=== PATIENT | male | born 1955 | race Caucasian/White ===

== ENCOUNTER 2019-11-05 18:30 | Inpatient (IN) | payer OTHER ==
[~2019-11-05] VITALS: Ht 177.8 cm; Wt 98.0 kg
[2019-11-05] MEDS ORDERED: ACETAMINOPHEN 500 MG TAB PO ONE (19:15)
[2019-11-05] MEDS ORDERED: SODIUM CHLORIDE 0.9% 1,000 ML IV ONE (19:15)
[2019-11-05 21:38] LABS: INR 1.23 (0.9-1.15); Partial Thromboplastin Time 39.9 sec (23.64-32.05)
[2019-11-05 21:44] LABS: Albumin 2.4 g/dL (3.4-5.0); Anion Gap 11 (5-15); Blood Urea Nitrogen 48 mg/dL (7-18); Calcium 7.1 mg/dL (8.5-10.1); Carbon Dioxide 20 mmol/L (21-32); Chloride 96 mmol/L (98-107); Glucose 152 mg/dL (74-106); Lactic Acid w/Reflex 2.6 mmol/L (0.4-2.0); Magnesium 1.8 mg/dL (1.6-2.6); Potassium 3.8 mmol/L (3.5-5.1); Sodium 127 mmol/L (136-145)
[2019-11-05 21:46] LABS: Alanine Aminotransferase 42 U/L (16-61); Aspartate Aminotransferase 107 U/L (15-37); BUN/Creatinine Ratio 33.8; GFR African American 65 mL/min; GFR Non-African American 53 mL/min
[2019-11-05 21:48] LABS: Urine Amorphous Crystal FEW /hpf (None Seen); Urine Bacteria NONE SEEN /hpf (None Seen); Urine Blood 3+ /uL (Negative); Urine Hyaline Cast FEW /lpf (0 - 2); Urine Mucus FEW (None Seen); Urine Specific Gravity 1.014 (1.001-1.035); Urine WBC 8 /hpf (0 - 3)
[2019-11-05 21:51] LABS: Alkaline Phosphatase 62 U/L (45-117); Bilirubin, Total 1.9 mg/dL (0.2-1.0)
[2019-11-05] MEDS ORDERED: PIPERACILLIN-TAZOB 3.375GM 100 ML IV ONE (22:15)
[2019-11-05] MEDS ORDERED: VANCOMYCIN 1GM/250ML 250 ML IV ONE (22:15)
[2019-11-05 22:30] LABS: Blood Alcohol < 3.0 mg/dL (0-5); Hematocrit 23.1 % (41.0-53.0); Hemoglobin 8.4 g/dL (13.5-17.5); Mean Corpuscular Hemoglobin 31.7 pg (28.0-32.0); Mean Corpuscular Hgb Conc. 36.2 g/dL (32.0-36.0); Mean Corpuscular Volume 87.6 fL (80.0-100.0); Platelet Count (auto) 46 10^3/uL (140-450); Red Blood Cells 2.64 10^6/uL (4.5-5.90); Red Cell Distribution Width 17.3 % (11.8-14.3); White Blood Cell 6.7 10^3/uL (4.4-10.8)
[2019-11-05 22:34] LABS: Basophils % (manual) 0 (0.0-2.0); Blast Cells 0; Eosinophils % (manual) 0 (0-7); Metamyelocytes % 0; Myelocytes % 0; Promyelocytes % 0; Reactive Lymphocytes 0
[2019-11-05 23:29] LABS: Band Neutrophils % (manual) 6; Lymphocytes % (manual) 2 (10.0-50.0); Monocytes % (manual) 12 (0-12)
[2019-11-06] VITALS (25 sets, daily range): BP systolic 96–108; BP diastolic 49–76
[2019-11-06] MEDS ORDERED: VANCOMYCIN PER PHARMACY 0 MG IV SCH (00:45)
[2019-11-06] MEDS ORDERED: ACETAMINOPHEN 325 MG TAB PO PRN (00:45)
[2019-11-06] MEDS ORDERED: NITROGLYCERIN 0.4 MG SL TAB SL PRN (00:45)
[2019-11-06] MEDS ORDERED: CEFTRIAXONE SODIUM 2 GM in D5W 5% 50 ML IV ONE (00:45)
[2019-11-06] MEDS ORDERED: SODIUM CHLORIDE 0.9% 500 ML IV ONE (00:45)
[2019-11-06] MEDS ORDERED: ENOXAPARIN SOD 100 MG/1 ML SYRINGE SC ONE (00:45)
[2019-11-06] MEDS ORDERED: MORPHINE SULF INJ 2 MG/ML SYRINGE 1ML IV PRN (00:45)
[2019-11-06] MEDS ORDERED: DEXTROSE (50%) 50ML SYRG IV PRN (00:45)
[2019-11-06] MEDS: SODIUM CHLORIDE 0.9% 1,000 ML IV SCH ×2 (00:45→12:36)
[2019-11-06] MEDS ORDERED: ONDANSETRON HCL 4 MG/2 ML VIAL IV PRN (00:45)
[2019-11-06] MEDS ORDERED: cefTRIAXone 1GM/50ML D5W 100 ML IV ONE (01:04)
[2019-11-06 01:35] LABS: CRP High Sensitivity 14.3 mg/dL (< 0.3)
[2019-11-06] MEDS ORDERED: VANCOMYCIN 1GM/250ML 250 ML IV ONE (02:00)
[2019-11-06] MEDS ORDERED: ACETAMINOPHEN 650 MG RECT SUPP PR ONE ×2 (06:45→15:09)
[2019-11-06] MEDS ORDERED: ALBUMIN 5% 250 ML IV ONE (07:15)
[2019-11-06] MEDS: ACCU-CHEK COMFORT CURVE STRIP VI SCH ×3 (07:40→21:52)
[2019-11-06] MEDS: InsuLIN REG 1unit/0.01ml Soln (100units/ml) SC SCH ×3 (08:30→21:52)
[2019-11-06] MEDS ORDERED: cefTRIAXone 1GM/50ML D5W 50 ML IV SCH (09:00)
[2019-11-06] MEDS: PHENYLEPHRINE IV 250 ML IV SCH ×2 (09:15→17:35)
[2019-11-06] MEDS ORDERED: ASPirin 81 mg TAB PO SCH (10:00)
[2019-11-06] MEDS ORDERED: FAMOTIDINE 20 MG TAB PO SCH (10:00)
[2019-11-06] MEDS ORDERED: IOHEXOL 350 MG/ML 100ML IJ ONE (11:08)
--- NOTE | 2019-11-06 15:10 | NUR ---
Pt being admitted to ICU GERARDOANNELIESE PEREZ admitted to ICU via gurney on laboratory monitor, and portable 02. Patient transferred to bed, connected to ICU monitoring and oxygen, and weighed by bedscale. Patient oriented to Steph Blount, primary RN, unit, room, bed, and unit policies regarding patient care and visiting hours, Patient is altered at this time. All questions and concerns addressed with sister Kathleen. Call vazquez in reach, bed alarm activated for patient safety.
[2019-11-06] MEDS: VANCOMYCIN 1GM/250ML 250 ML IV SCH (15:21)
[2019-11-06] MEDS: ACETAMINOPHEN 650 MG RECT SUPP PR PRN (15:30)
[2019-11-06] MEDS ORDERED: MEROPENEM 1GM IVPB 100 ML IV ONE (16:00)
--- NOTE | 2019-11-06 16:30 | NUR ---
TEMP PATIENT TEMP REMAINS AT 101.3 RECTALLY. APPLIED COOLING BLANKET. WILL CONTINUE TO MONITOR.
[2019-11-06] MEDS ORDERED: GLIP5TAB12 PO (18:40)
[2019-11-06] MEDS ORDERED: LISI2.5T47 PO (18:40)
--- NOTE | 2019-11-06 19:00 | NUR ---
PATIENT IS MORE ALERT AND ASKING FOR WATER. STILL UNABLE TO TELL ME HIS NAME, DATE OF , OR WHERE HE IS. PATIENT ABLE TO SWALLOW WATER WITHOUT ANY NOTED ASPIRATION.
--- NOTE | 2019-11-06 20:00 | NUR ---
Patient was noted to remove his blood pressure cuff.
--- NOTE | 2019-11-06 20:30 | NUR ---
Dr. Kirk at patient bedside. No new orders obtained from at this time.
[2019-11-06] MEDS: ATORVASTATIN 20 MG TAB PO SCH (21:36)
[2019-11-06] MEDS: MEROPENEM 1GM IVPB 100 ML IV SCH (21:51)
--- NOTE | 2019-11-06 21:57 | NUR ---
IV pulled out: Patient accidentally pulled out his IV to his right FA. Catheter to IV fully intact. Patient in no discomfort or distress.
--- NOTE | 2019-11-06 22:32 | NUR ---
Patient was noted to be pulling on his EKG lines and lebron catheter. RN placed mittens on patient to prevent pulling of lines. Patient resting comfortably in bed with no s/s of discomfort or distress. Patient tolerating mittens well at this time.
[2019-11-06 22:44] LABS: Amphetamine Screen, Urine NEGATIVE (NEGATIVE); Barbiturate Scree,Urine NEGATIVE (NEGATIVE); Benzodiazephine Screen, Urine NEGATIVE (NEGATIVE)
[2019-11-06 22:57] LABS: Cannabinoid Screen, Urine NEGATIVE (NEGATIVE); Cocaine Screen, Urine NEGATIVE (NEGATIVE); Opiate Scree,Urine NEGATIVE (NEGATIVE); Phencyclidine Screen, Urine NEGATIVE (NEGATIVE)
[2019-11-06 22:59] LABS: Alcohol, Urine < 3.0 mg/dL (0-10)
[2019-11-07] MEDS: SODIUM CHLORIDE 0.9% 1,000 ML IV SCH ×3 (00:17→23:59)
--- NOTE | 2019-11-07 01:11 | NUR ---
Report given to Susan GILL. Patient being downgraded to Tele and going to room 283A. Addendum: 11/07/19 at 0143 by ANITA FRIED RN RN Not room 283A, patient went into room 282A.
[2019-11-07 01:30] VITALS: BP 108/57
--- NOTE | 2019-11-07 01:30 | NUR ---
Transfer: Patient was transferred to room 282A via protocol. Patient in no s/s of discomfort or distress.
--- NOTE | 2019-11-07 01:35 | NUR ---
Assumed care of patient. report received. patient awake and alert, oriented x 3, reoriented to situation, patient follows directions. Patient on 2L vai NC with even and unlabored respirations, no s/s of distress or SOB. Jones intact and draining to gravity. Left forearm 18g intact and patent, started IVF per orders. SCD's on to bilateral LE with machine on. Bed in lowest locked position with side rails up x 2 and call light within reach. sitter at bedside. will continue care.
[2019-11-07] MEDS: VANCOMYCIN 1GM/250ML 250 ML IV SCH ×2 (02:16→14:38)
--- NOTE | 2019-11-07 02:30 | NUR ---
Bowel Movement patient noted to have loose BM, incontinent. Patient was cleansed, barrier cream and optifoam applied to sacrum, full linen change.
[2019-11-07 05:00] VITALS: BP 97/54
[2019-11-07 06:17] LABS: Hematocrit 20.7 % (41.0-53.0); Hemoglobin 7.4 g/dL (13.5-17.5); Mean Corpuscular Hemoglobin 31.6 pg (28.0-32.0); Mean Corpuscular Hgb Conc. 35.7 g/dL (32.0-36.0); Mean Corpuscular Volume 88.5 fL (80.0-100.0); Platelet Count (auto) 35 10^3/uL (140-450); Red Blood Cells 2.33 10^6/uL (4.5-5.90)
[2019-11-07 06:25] LABS: Potassium 3.4 mmol/L (3.5-5.1)
[2019-11-07] MEDS: ACCU-CHEK COMFORT CURVE STRIP VI SCH ×4 (06:38→23:58)
[2019-11-07] MEDS: ACETAMINOPHEN 650 MG RECT SUPP PR PRN (06:39)
[2019-11-07 06:41] LABS: Albumin 2.1 g/dL (3.4-5.0); BUN/Creatinine Ratio 45.9; Calcium 6.9 mg/dL (8.5-10.1); Magnesium 2.3 mg/dL (1.6-2.6); Total Protein 5.4 g/dL (6.4-8.2)
[2019-11-07] MEDS: InsuLIN REG 1unit/0.01ml Soln (100units/ml) SC SCH ×4 (06:58→23:58)
--- NOTE | 2019-11-07 07:12 | NUR ---
Closing note patient resting in bed with even and unlabored respirations, oxygen on at 2L via NC. no s/s of distress or SOB. patient was able to tolerated water well. aspirations precautions in place. SCD's on to bilateral LE with machine on. Bed in lowest locked position with side rails up x 2 and call light within reach. sitter at bedside.
--- NOTE | 2019-11-07 07:12 | NUR ---
OPENING SHIFT NOTE ASSUMED CARE OF PATIENT FROM INDUSTRIAL ENGINEERING RN PRASAD. PATIENT IS AWAKE, ALERT, AND ORIENTED X4. PATIENT HAS NO S/S OF DISTRESS/SOB OR PAIN. INSTRUCTED PATIENT ON POC, PATIENT VERBALIZED UNDERSTANDING. BED IS IN LOWEST POSITION WITH SIDE RAILS RAISED X2, BED WHEELS LOCKED, WRIGHT IS HANGING BELOW BLADDER AND IS DRAINING YELLOW URINE, SITTER AT BEDSIDE, AND CALL LIGHT IS WITHIN REACH. WILL CONTINUE TO MONITOR.
[2019-11-07 07:40] LABS: Basophils % (manual) 0 (0.0-2.0); Blast Cells 0; Eosinophils % (manual) 0 (0-7); Myelocytes % 0; Promyelocytes % 0; Reactive Lymphocytes 0
[2019-11-07] MEDS ORDERED: POTASSIUM CHLORIDE 20 MEQ, LIDOCAINE 1% (LOCAL ANESTH.) 2 ML in SODIUM CHL 0.9% 100 ML IV ONE (08:15)
--- NOTE | 2019-11-07 08:18 | NUR ---
CALLED PHARMACY FOR POTASSIUM. PER PHARMACIST THEY WILL SEND IT UP ONCE IT HAS BEEN MADE.
[2019-11-07] MEDS: MEROPENEM 1GM IVPB 100 ML IV SCH (09:47)
[2019-11-07] MEDS: PANTOPRAZOLE 40 MG/10 ML VIAL INJ IV SCH (09:47)
[2019-11-07] MEDS ORDERED: ASPirin 81 mg TAB PO SCH (10:00)
--- NOTE | 2019-11-07 12:00 | NUR ---
WOUND CARE NOTE: IN TO SEE PATIENT AT THIS TIME PER WOUND CARE CONSULT REQUEST. PATIENT WAS NOTED TO HAVE WOUNDS UPON ADMIT. WOUND PHOTOS TAKEN AT THAT TIME FOR REFERENCE BY BEDSIDE NURSE. PATIENT ADMITTED TO [facility] WITH DIAGNOSIS OF SEPSIS. CURRENT JAYDEN SCORE IS 12. PATIENT HAS SITTER AT BEDSIDE, IN ISOLATION ROOM WITH AIRBORNE PRECAUTIONS. PATIENT IS REFUSING TO ALLOW EXAMINATION OF WOUNDS AT THIS TIME, STATING THAT HE HAS " MORE THAN ENOUGH DONE FOR TODAY". PER PHOTOGRAPHS, PATIENT IS NOTED TO HAVE INTACT SKIN, WITH A SMALL LINEAR DTI TO THE INTRAGLUTEAL FOLD SACRUM, A SCRATCH TO HIS FOREHEAD, AND A SMALL ECCHYMOTIC AREA TO THE RIGHT LATERAL FOOT. HE IS WEARING AN OPTIFOAM GENTLE SACRAL DRESSING TO COVER AND PROTECT. ORDERED SPECIALTY AIR MATTRESS. PATIENT TO BE PLACED, PENDING DELIVERY BY [facility]. UPDATED SKIN/WOUND CARE PLAN. RECOMMEND: FREQUENT TURN SCHEDULE Q 2 HOURS, PRN CONDITION PERMITS WITH PRESSURE REDISTRIBUTION USING PILLOWS/WEDGES, BID/PRN APPLICATION WITH MOISTURE BARRIER FILM, OPTIFOAM GENTLE SACRAL DRESSING, SPECIALTY AIR MATTRESS, DIETARY CONSULT FOR WOUNDS, LOW JAYDEN, CONTINUED MONITORING BY WOUND CARE TEAM. Addendum: 11/07/19 at 1556 by Yissel Javier RN Amended: Links added.
[2019-11-07 12:07] LABS: Band Neutrophils % (manual) 12; Lymphocytes % (manual) 10 (10.0-50.0); Metamyelocytes % 1; Monocytes % (manual) 21 (0-12)
[2019-11-07 12:26] VITALS: BP 103/60
[2019-11-07] MEDS ORDERED: THIAMINE HCL 100 MG TAB PO ONE (14:15)
[2019-11-07] MEDS ORDERED: FOLIC ACID 1 MG TAB PO ONE (14:15)
[2019-11-07] MEDS ORDERED: MULTIPLE VITAMINS W/ MINERALS TAB PO ONE (14:15)
--- NOTE | 2019-11-07 14:30 | NUR ---
VANCOMYCIN STOPPED AT 125 ML.
--- NOTE | 2019-11-07 14:50 | NUR ---
INFORMED MD ESTRADA PATIENT STATES HE IS HAVING PAIN. MD ORDERED NORCO TO BE GIVEN. WILL FOLLOW THROUGH WITH ORDERS.
--- NOTE | 2019-11-07 16:43 | NUR ---
SPOKE WITH PHARMACIST AND INFORMED THEM THAT VANCOMYCIN WAS GIVEN BECAUSE PROTOCOL COMMENT FOR TROUGH DRAW WAS DATED INCORRECTLY, INFORMED PHARMACIST VANCO TROUGH IS 21. PHARMACIST IS AWARE AND ADJUSTED NEW VANCOMYCIN ORDER.
[2019-11-07 17:08] VITALS: BP 100/59
[2019-11-07] MEDS: HYDROcodone-ACET 5/325MG TAB PO PRN (17:22)
--- NOTE | 2019-11-07 17:52 | NUR ---
MD TABOR AT BEDSIDE UPDATED MD ON PATIENT'S STATUS, MD IS AWARE AND PER MD PATIENT IS NOT A CANDIDATE FOR SURGERY AND WILL SEE PATIENT ONCE MENINGITIS ONCE RULED OUT.
--- NOTE | 2019-11-07 19:27 | NUR ---
CLOSING SHIFT NOTE ENDORSED CARE TO TARIFF COMPILER BRIDGET VARGAS. PATIENT HAS NO S/S OF DISTRESS/SOB OR PAIN AT THIS TIME.
[2019-11-07 22:00] VITALS: BP 113/64
[2019-11-07] MEDS: ATORVASTATIN 20 MG TAB PO SCH (23:59)
[2019-11-08] VITALS (7 sets, daily range): BP systolic 93–115; BP diastolic 54–69
[2019-11-08] MEDS: HYDROcodone-ACET 5/325MG TAB PO PRN ×2 (02:10→10:17)
[2019-11-08] MEDS: ACCU-CHEK COMFORT CURVE STRIP VI SCH ×4 (06:49→22:00)
[2019-11-08] MEDS: InsuLIN REG 1unit/0.01ml Soln (100units/ml) SC SCH ×4 (06:49→22:00)
[2019-11-08 06:51] LABS: Basophils # (auto) 0 10 ^3/uL (0-0.2); Basophils % (auto) 0.2 % (0.0-2.0); Eosinophils # (auto) 0 10 ^3/uL (0-0.8); Eosinophils % (auto) 1.2 % (0.0-7.0); Hemoglobin 7.1 g/dL (13.5-17.5); Lymphocytes # (auto) 0.5 10 ^3/uL (0.4-5.4); Monocytes # (auto) 0.6 10 ^3/uL (0-1.3); Red Blood Cells 2.27 10^6/uL (4.5-5.90); White Blood Cell 3.7 10^3/uL (4.4-10.8)
[2019-11-08 06:54] LABS: Hematocrit 20.2 % (41.0-53.0); Lymphocytes % (auto) 12.8 % (10.0-50.0); Mean Corpuscular Hemoglobin 31.5 pg (28.0-32.0); Mean Corpuscular Hgb Conc. 35.4 g/dL (32.0-36.0); Mean Corpuscular Volume 88.9 fL (80.0-100.0); Monocytes % (auto) 17.4 % (0.0-12.0); Neutrophils # (auto) 2.5 10 ^3/uL (1.6-8.6); Neutrophils % (auto) 68.4 % (37.0-80.0); Nucleated Red Blood Cells % 0.2 %; Platelet Count (auto) 38 10^3/uL (140-450); Red Cell Distribution Width 17.1 % (11.8-14.3)
[2019-11-08 06:55] LABS: INR 1.2 (0.9-1.15)
[2019-11-08 07:09] LABS: Potassium 3.4 mmol/L (3.5-5.1)
[2019-11-08 07:14] LABS: Albumin 1.8 g/dL (3.4-5.0); BUN/Creatinine Ratio 56.2; Calcium 6.9 mg/dL (8.5-10.1)
[2019-11-08 07:19] LABS: Bilirubin, Total 0.9 mg/dL (0.2-1.0); Total Protein 5.1 g/dL (6.4-8.2)
[2019-11-08] MEDS ORDERED: VANCOMYCIN 1GM/250ML 250 ML IV SCH (08:00)
[2019-11-08] MEDS: FOLIC ACID 1 MG TAB PO SCH (10:15)
[2019-11-08] MEDS: PANTOPRAZOLE 40 MG/10 ML VIAL INJ IV SCH (10:15)
[2019-11-08] MEDS: THIAMINE HCL 100 MG TAB PO SCH (10:16)
[2019-11-08] MEDS: MULTIPLE VITAMINS W/ MINERALS TAB PO SCH (10:16)
[2019-11-08] MEDS: MEROPENEM 1GM IVPB 100 ML IV SCH ×3 (10:16→17:53)
[2019-11-08] MEDS: SODIUM CHLORIDE 0.9% 1,000 ML IV SCH ×2 (12:35→23:21)
[2019-11-08] MEDS: VANCOMYCIN 1GM/250ML 250 ML IV SCH ×2 (13:16→23:58)
--- NOTE | 2019-11-08 15:07 | NUR ---
Consult Consider adding Glucerna TID if pt po intake continues to be poor Est energy needs 4410-2655 (25-30 kcal/kg BW 73.3kg) Est protein needs 73-88g (1-1.2g/kg BW 73.3kg r/t wounds, low alb) will reassess prn Addendum: 11/08/19 at [address] Amended: Links added.
[2019-11-08 19:04] LABS: % Iron Saturation 3.9 % (20-55)
--- NOTE | 2019-11-08 20:00 | NUR ---
Opening Shift Note Assumed care of patient, awake and alert. No S/S of distress/SOB or pain. Instructed on POC and to call for assist PRN, will continue to monitor for changes Q1hr and PRN. 1:1 sitter near patient door.
[2019-11-08] MEDS: LACTULOSE 20Gm/30ML SOLN PO SCH (23:18)
[2019-11-08] MEDS: ATORVASTATIN 20 MG TAB PO SCH (23:18)
[2019-11-09] MEDS: HYDROcodone-ACET 5/325MG TAB PO PRN ×3 (00:06→15:00)
[2019-11-09] MEDS: MEROPENEM 1GM IVPB 100 ML IV SCH ×3 (02:24→18:28)
--- NOTE | 2019-11-09 04:30 | NUR ---
Preparations were made to transport patient down to Radiology for Lumbar and Thoraic CT. Patient stated he had just fallen asleep and declined CT at this time..
--- NOTE | 2019-11-09 07:00 | NUR ---
Patient resting comfortably no distress noted. Sitter remains at room door.
[2019-11-09 07:11] LABS: Basophils # (auto) 0 10 ^3/uL (0-0.2); Basophils % (auto) 0.1 % (0.0-2.0); Eosinophils # (auto) 0.1 10 ^3/uL (0-0.8); Hemoglobin 7.4 g/dL (13.5-17.5); Lymphocytes # (auto) 0.6 10 ^3/uL (0.4-5.4); Mean Corpuscular Hgb Conc. 34.4 g/dL (32.0-36.0); Monocytes # (auto) 0.6 10 ^3/uL (0-1.3); Potassium 3.4 mmol/L (3.5-5.1); Red Blood Cells 2.37 10^6/uL (4.5-5.90)
[2019-11-09 07:13] LABS: Eosinophils % (auto) 1.8 % (0.0-7.0); Hematocrit 21.5 % (41.0-53.0); Lymphocytes % (auto) 10.3 % (10.0-50.0); Mean Corpuscular Hemoglobin 31.2 pg (28.0-32.0); Mean Corpuscular Volume 90.6 fL (80.0-100.0); Monocytes % (auto) 10.3 % (0.0-12.0); Neutrophils # (auto) 4.7 10 ^3/uL (1.6-8.6); Neutrophils % (auto) 77.5 % (37.0-80.0); Platelet Count (auto) 51 10^3/uL (140-450); Red Cell Distribution Width 16.6 % (11.8-14.3)
[2019-11-09] MEDS: InsuLIN REG 1unit/0.01ml Soln (100units/ml) SC SCH ×4 (07:15→21:57)
[2019-11-09] MEDS: ACCU-CHEK COMFORT CURVE STRIP VI SCH ×4 (07:16→21:57)
[2019-11-09 07:19] LABS: BUN/Creatinine Ratio 59.6; Calcium 7.1 mg/dL (8.5-10.1)
--- NOTE | 2019-11-09 08:02 | NUR ---
OPENING SHIFT NOTE Assumed care of patient. Patient is awake and alert. No S/S of distress/SOB. Instructed on POC and to call for assist PRN. Bed is in low and locked position. Call light within reach. Will continue to monitor for changes Q1hr and PRN. Sitter near patient door.
[2019-11-09 09:00] VITALS: BP 122/62
[2019-11-09 11:34] LABS: INR 1.23 (0.9-1.15); Partial Thromboplastin Time 32.8 sec (23.64-32.05)
[2019-11-09 11:43] LABS: Amylase 48 U/L (25-115); Lipase 352 U/L (73-393)
[2019-11-09] MEDS: LACTULOSE 20Gm/30ML SOLN PO SCH ×2 (12:00→21:56)
[2019-11-09] MEDS: MULTIPLE VITAMINS W/ MINERALS TAB PO SCH (12:00)
[2019-11-09] MEDS: FOLIC ACID 1 MG TAB PO SCH (12:00)
[2019-11-09] MEDS: THIAMINE HCL 100 MG TAB PO SCH (12:00)
[2019-11-09] MEDS: PANTOPRAZOLE 40 MG/10 ML VIAL INJ IV SCH (12:00)
[2019-11-09] MEDS: SODIUM CHLORIDE 0.9% 1,000 ML IV SCH ×2 (12:01→21:57)
[2019-11-09] MEDS: VANCOMYCIN 1GM/250ML 250 ML IV SCH (12:02)
[2019-11-09 12:34] VITALS: BP 99/54
[2019-11-09 16:40] VITALS: BP 97/54
[2019-11-09] MEDS: ATORVASTATIN 20 MG TAB PO SCH (21:57)
[2019-11-09 22:00] VITALS: BP 99/55
[2019-11-10] MEDS: VANCOMYCIN 1GM/250ML 250 ML IV SCH ×2 (00:41→12:00)
[2019-11-10] MEDS: MEROPENEM 1GM IVPB 100 ML IV SCH ×3 (03:04→17:36)
[2019-11-10] MEDS: HYDROcodone-ACET 5/325MG TAB PO PRN ×3 (05:50→14:58)
--- NOTE | 2019-11-10 05:50 | NUR ---
pt refuses taina care at this time, citing "my back hurts" this nurse administered norco per MD and MAR order, this nurse will return and attempt taina care at later time. call light in reach.
[2019-11-10] MEDS: InsuLIN REG 1unit/0.01ml Soln (100units/ml) SC SCH ×4 (07:00→22:00)
[2019-11-10] MEDS: ACCU-CHEK COMFORT CURVE STRIP VI SCH ×4 (07:00→22:29)
--- NOTE | 2019-11-10 07:35 | NUR ---
Opening Shift Note Assumed care of patient, awake and alertx3. No S/S of distress/SOB report at this time. Instructed on POC and to call for assist PRN, call light within reach, isolation precautions in place, IV noted to be pulled out, pressure dressing applied, new IV inserted to left hand 22g, pt tolerated well, pt unable to help with turning due to pain and weakness, will medicate as ordered, scd's applied to BLE, will continue to monitor for changes Q1hr and PRN.
--- NOTE | 2019-11-10 08:16 | NUR ---
NEURO DR FLOWERS AT NURSING STATION, PT PENDING LUMBAR PUNCTURE, YESTERDAYS MORNING PLATELET COUNT WAS 51, CBC AND BMP ORDERED FOR TODAY AND MRI OF THE NECK WAS ORDERED BY MD PT CONT TO C/O NECK PAIN, CONT CARE
[2019-11-10 08:52] LABS: Hemoglobin 7.5 g/dL (13.5-17.5); White Blood Cell 5.9 10^3/uL (4.4-10.8)
[2019-11-10 08:57] LABS: Basophils # (auto) 0 10 ^3/uL (0-0.2); Basophils % (auto) 0.1 % (0.0-2.0); Eosinophils # (auto) 0.1 10 ^3/uL (0-0.8); Eosinophils % (auto) 1.9 % (0.0-7.0); Hematocrit 21.7 % (41.0-53.0); Lymphocytes # (auto) 0.6 10 ^3/uL (0.4-5.4); Lymphocytes % (auto) 9.5 % (10.0-50.0); Mean Corpuscular Hgb Conc. 34.5 g/dL (32.0-36.0); Mean Corpuscular Volume 89.7 fL (80.0-100.0); Monocytes # (auto) 0.7 10 ^3/uL (0-1.3); Monocytes % (auto) 11.6 % (0.0-12.0); Neutrophils # (auto) 4.6 10 ^3/uL (1.6-8.6); Neutrophils % (auto) 76.9 % (37.0-80.0); Nucleated Red Blood Cells % 0.1 %; Platelet Count (auto) 61 10^3/uL (140-450); Red Blood Cells 2.42 10^6/uL (4.5-5.90); Red Cell Distribution Width 17.3 % (11.8-14.3)
[2019-11-10 09:00] VITALS: BP 108/63
[2019-11-10 09:04] LABS: INR 1.31 (0.9-1.15); Partial Thromboplastin Time 33.1 sec (23.64-32.05)
[2019-11-10 09:18] LABS: Albumin 1.9 g/dL (3.4-5.0); Calcium 7.4 mg/dL (8.5-10.1); Potassium 3.5 mmol/L (3.5-5.1)
[2019-11-10 09:23] LABS: BUN/Creatinine Ratio 54.5; Total Protein 5.3 g/dL (6.4-8.2)
[2019-11-10 09:27] LABS: Hepatitis B Surface Antibody Positive
[2019-11-10] MEDS: PANTOPRAZOLE 40 MG/10 ML VIAL INJ IV SCH (09:32)
[2019-11-10 09:59] LABS: Hepatitis A Total Antibody Positive
[2019-11-10] MEDS: MULTIPLE VITAMINS W/ MINERALS TAB PO SCH (10:00)
[2019-11-10] MEDS: THIAMINE HCL 100 MG TAB PO SCH (10:00)
[2019-11-10] MEDS: LACTULOSE 20Gm/30ML SOLN PO SCH (10:00)
[2019-11-10] MEDS: FOLIC ACID 1 MG TAB PO SCH (10:00)
--- NOTE | 2019-11-10 10:00 | NUR ---
Attempted PT treatment, pt states he is in too much pain to participate. RN notified, will attempt again later.
[2019-11-10] MEDS: SODIUM CHLORIDE 0.9% 1,000 ML IV SCH ×2 (10:39→22:29)
--- NOTE | 2019-11-10 10:45 | NUR ---
MD DR ELLIS HERE TO SEE PTMD UPDATED ON PT CURRENT CONDITION, INCLUDING PT CONT TO C/O NECK AND BACK PAIN, ORDERS TO BE ENTERED BY MD CONT CARE
[2019-11-10 12:26] LABS: Hepatitis B Surface Antigen Negative (Negative)
--- NOTE | 2019-11-10 12:51 | NUR ---
VANCOMYCIN DOSE HELD DUE TO ELEVATED VANCO TROUGH
[2019-11-10 12:54] LABS: Hepatitis B Core Total AB Positive
[2019-11-10 12:55] LABS: Hepatitis C Antibody Positive (Negative)
--- NOTE | 2019-11-10 12:56 | NUR ---
CRITICAL LAB REPORT RECEIVED FOR POSITIVE HEP C AND HEP B, DR ZENG AWARE, NO NEW ORDERS RECEIVED, CONT CARE
[2019-11-10 13:10] VITALS: BP 99/68
[2019-11-10] MEDS ORDERED: levoFLOXacin 750MG 150 ML IV ONE (14:15)
[2019-11-10] MEDS ORDERED: PHYTONADIONE (VIT K)10 MG/ML 1ML VIAL SUBCUT ONE ×2 (14:15→14:30)
[2019-11-10] MEDS ORDERED: IRON SUCROSE COMPLEX 200 MG in SODIUM CHL 0.9% 100 ML IV ONE (14:15)
--- NOTE | 2019-11-10 15:15 | NUR ---
PT REFUSING IMAGING PT REFUSED MRI, AND HIDA SCAN, SPOKE WITH HIS SISTER ANSELMO WHO THEN SPOKE WITH PT, TECH CAME UP TO TRANSPORT HIM TO NUCLEAR MED AND PT AGAIN REFUSED, SPOKE WITH ANSELMO (SISTER) WHO SPOKE EXTENSIVELY WITH PT, DR ELLIS AWARE PT REFUSING IMAGING STUDIED, CONT CARE
--- NOTE | 2019-11-10 16:05 | NUR ---
PT TAKEN TO RADIOLOGY WITH PROPER ISOLATION PRECAUTIONS
[2019-11-10 17:00] VITALS: BP 111/68
--- NOTE | 2019-11-10 19:22 | NUR ---
Opening Shift Note Assumed care of patient. Patient is awake, alert, and oriented x 3. No S/S of respiratory distress/SOB reported at this time. Bed in lowest position, side rails up X 2, brakes locked, call light within reach. Isolation precautions in place. IV left hand 22g asymptomatic and patent. SCD's applied to BLE. POC discussed with the pt and pt instructed to call for assistance PRN. Will continue to monitor for changes Q1hr and PRN.
[2019-11-10 20:00] VITALS: BP 126/66
[2019-11-10] MEDS: ATORVASTATIN 20 MG TAB PO SCH (22:28)
[2019-11-10 23:28] VITALS: BP 126/66
[2019-11-11 05:30] VITALS: BP 130/70
--- NOTE | 2019-11-11 06:17 | NUR ---
IV and back pain Patient had a bowel movement in bed and had to be cleaned and changed. Gather all needed equipment SURTASS ANALYST and RN came to pt's room. Patient removed all electrodes from his chest and pulled his IV out. Catheter is fully intact. No bleeding from IV site. Pressure applied and Co Band wrapped around. During the night patient disconnected himself from containers sales representative several times by pulling electrodes off. Patient has been cleaned. Gown, sheets, and chalk have been changed. Patient refused to put new IV at this time stating that "I am hurting right now". Patient refused pain medication to relieve his back pain. Will continue to monitor.
[2019-11-11] MEDS: ACCU-CHEK COMFORT CURVE STRIP VI SCH ×4 (06:38→21:54)
[2019-11-11] MEDS: InsuLIN REG 1unit/0.01ml Soln (100units/ml) SC SCH ×4 (06:38→21:54)
--- NOTE | 2019-11-11 07:10 | NUR ---
Leads Patient insists on removing electrodes' patches from his chest stating "They are hurting me" and trying to pulled them off.
--- NOTE | 2019-11-11 07:30 | NUR ---
Opening Shift Note Received report and assumed care of patient, awake and alert. No S/S of distress/SOB C/O BACK pain. Instructed on POC and Nursing routines,call light within reach patient reminded instructed to call for assistance.Turning to sides q 2 hours, patient verbalized understanding.will continue to monitor for changes Q1hr and PRN.
--- NOTE | 2019-11-11 07:30 | NUR ---
RECEIVED NO IV SITE,PER NOC SHIFT RN REPORT PATIENT PULLED IV
[2019-11-11 09:00] VITALS: BP 106/84
--- NOTE | 2019-11-11 09:00 | NUR ---
IV G#22 TO RIGHT WRIST STARTED
[2019-11-11 09:29] LABS: Basophils # (auto) 0 10 ^3/uL (0-0.2); Basophils % (auto) 0.3 % (0.0-2.0); Eosinophils # (auto) 0.1 10 ^3/uL (0-0.8); Lymphocytes # (auto) 0.4 10 ^3/uL (0.4-5.4); Monocytes # (auto) 0.6 10 ^3/uL (0-1.3); White Blood Cell 5.6 10^3/uL (4.4-10.8)
[2019-11-11 09:30] LABS: Eosinophils % (auto) 1.4 % (0.0-7.0); Hematocrit 24.3 % (41.0-53.0); Hemoglobin 8.1 g/dL (13.5-17.5); Lymphocytes % (auto) 7.9 % (10.0-50.0); Mean Corpuscular Hemoglobin 31.2 pg (28.0-32.0); Mean Corpuscular Hgb Conc. 33.3 g/dL (32.0-36.0); Mean Corpuscular Volume 93.6 fL (80.0-100.0); Monocytes % (auto) 11.1 % (0.0-12.0); Neutrophils # (auto) 4.4 10 ^3/uL (1.6-8.6); Neutrophils % (auto) 79.3 % (37.0-80.0); Nucleated Red Blood Cells % 0.2 %; Platelet Count (auto) 73 10^3/uL (140-450); Red Blood Cells 2.59 10^6/uL (4.5-5.90); Red Cell Distribution Width 17.3 % (11.8-14.3)
[2019-11-11 09:38] LABS: INR 1.37 (0.9-1.15)
[2019-11-11] MEDS: FOLIC ACID 1 MG TAB PO SCH (09:47)
[2019-11-11] MEDS: HYDROcodone-ACET 5/325MG TAB PO PRN ×2 (09:47→17:05)
[2019-11-11] MEDS: MULTIPLE VITAMINS W/ MINERALS TAB PO SCH (09:47)
[2019-11-11] MEDS: levoFLOXacin 750MG 150 ML IV SCH (09:48)
[2019-11-11] MEDS: THIAMINE HCL 100 MG TAB PO SCH (09:48)
[2019-11-11] MEDS: PANTOPRAZOLE 40 MG/10 ML VIAL INJ IV SCH (09:48)
[2019-11-11] MEDS: SODIUM CHLORIDE 0.9% 1,000 ML IV SCH ×2 (09:53→13:45)
--- NOTE | 2019-11-11 10:00 | NUR ---
C/O BACK PAIN,SCALE OF 6,MEDICATED WITH NORCO 5/325 PO
--- NOTE | 2019-11-11 11:00 | NUR ---
MD VISIT DR. ESTRADA HERE TO SEE AND RIVAS MARIO PATIENT,PATIENT STATED WANTED TO SLEEP, RECEIVED ORDER TO DISCONTINUE WRIGHT CATHETER.
--- NOTE | 2019-11-11 11:25 | NUR ---
CALLED [facility] FOR HIDA SCAN,PER TECH NO DOSE AVAILABLE FOR TODAY
--- NOTE | 2019-11-11 11:50 | NUR ---
DR. ESTRADA MADE AWARE NO DOSE FOR NUCLEAR MED FOR HIDA SCAN
--- NOTE | 2019-11-11 11:55 | NUR ---
PATIENT SISTER ANSELMO CALLED AFTER PROVIDING PASSWORD,INFORMATION AND UPDATE GIVEN
[2019-11-11] MEDS ORDERED: IRON SUCROSE COMPLEX 200 MG in SODIUM CHL 0.9% 100 ML IV SCH (12:00)
[2019-11-11 13:00] VITALS: BP 121/64
--- NOTE | 2019-11-11 13:40 | NUR ---
RECEIVED VERBAL ORDER FROM DR. ESTRADA TO DISCONTINUE ISOLATION
--- NOTE | 2019-11-11 15:38 | NUR ---
Nutrition Followup Note Wt 59.1 kg Pt is in isolation so unable to speak to pt. Per MD note pt to get out of isolation. Pt po intake is adequate aeb pt with avg po intake of 75% per RN doc. If pt po intake becomes poor again consider adding Glucerna 1 carton TID. Est energy needs 4521-0312 (25-30 kcal/kg BW 73.3kg) Est protein needs 73-88g (1-1.2g/kg BW 73.3kg r/t wounds, low alb) will reassess prn Labs: GLUC 138H, BUN 55H, Ca 7.4L, Alb 1.9L BM: 2 BMs 11/10 per RN doc Skin: BS 17 mod risk, pt with wounds on sacrum and foot, full details in child care center administrator doc. PES: Increased protein needs r/t increased protein needs for wound healing aeb pt with wounds on head, sacrum, and foot Altered nutrition related labs r/t current and chronic medical condition aeb pt with hyperglycemia, severe hypoalb Comments: 1) continue to monitor po intake, labs, skin 2) refer pt to opd on DC 3) continue current plan of care Will continue to monitor the pt po intake and need for oral supplements, if pt po intake becomes poor again consider adding Glucerna 1 carton TID Expected Outcomes/Goals: 1) Pt po intake >75% 2) pt wounds to improve 3) f/u 3-5 days Addendum: 11/11/19 at [address] Amendment: Pt po intake is inadequate aeb pt with 25% po intake per RN nutrition note. Consider adding Glucerna 1 carton TID.
--- NOTE | 2019-11-11 15:40 | NUR ---
HIDA SCAN COMPLETED
[2019-11-11 17:00] VITALS: BP 121/60
--- NOTE | 2019-11-11 17:44 | NUR ---
CALLED ND RETURN CALL OF PATIENT SISTER ANSELMO,NO ANSWER LEFT MESSAGE
--- NOTE | 2019-11-11 17:50 | NUR ---
ANSELMO (PATIENT SISTER) CALLED BACK,UPDATED WITH PLAN OF CARE AND DISCHARGE PLAN TO SNF,HAVE FEW QUESTIONS ABOUT PATIENT STATUS AND DIAGNOSIS,EXPLAIN AND REASSURED WILL INFORM Annalise. DR. ESTRADA AND DR. WHITING TO TALK TO HER AND EXPLAIN DIAGNOSIS AND FURTHER PLAN OF CARE.
--- NOTE | 2019-11-11 18:35 | NUR ---
ANSELMO (PATIENT SISTER) CALLED BACK INQUIRED MORE ABOUT SNF,PATIENT REASSURED WHEEL ASSEMBLER WILL INFORM HER ONCE PLACEMENT IS FOUND.
--- NOTE | 2019-11-11 18:45 | NUR ---
WRIGHT CATHETER DISCONTINUED
--- NOTE | 2019-11-11 18:50 | NUR ---
IV TO RIGHT WRIST LEAKING,DISCONTINUED AND STARTED g#22 TO LEFT HAND
--- NOTE | 2019-11-11 19:30 | NUR ---
REPORT GIVEN TO INCOMING NOC RN,STATUS UNCHANGED NO DISTRESS NO C/O PAIN.
[2019-11-11 20:00] VITALS: BP 127/71
[2019-11-11] MEDS: ATORVASTATIN 20 MG TAB PO SCH (21:53)
[2019-11-11 22:00] VITALS: BP 122/71
[2019-11-12] VITALS (7 sets, daily range): BP systolic 97–134; BP diastolic 48–68
[2019-11-12] MEDS: HYDROcodone-ACET 5/325MG TAB PO PRN ×2 (05:26→21:34)
[2019-11-12 06:21] LABS: INR 1.31 (0.9-1.15)
[2019-11-12 06:29] LABS: Basophils # (auto) 0 10 ^3/uL (0-0.2); Basophils % (auto) 0.1 % (0.0-2.0); Eosinophils # (auto) 0.1 10 ^3/uL (0-0.8); Eosinophils % (auto) 1.2 % (0.0-7.0); Hematocrit 23.1 % (41.0-53.0); Hemoglobin 7.9 g/dL (13.5-17.5); Lymphocytes # (auto) 0.4 10 ^3/uL (0.4-5.4); Lymphocytes % (auto) 7.7 % (10.0-50.0); Mean Corpuscular Hgb Conc. 34.2 g/dL (32.0-36.0); Mean Corpuscular Volume 90.6 fL (80.0-100.0); Monocytes # (auto) 0.6 10 ^3/uL (0-1.3); Monocytes % (auto) 10.1 % (0.0-12.0); Neutrophils # (auto) 4.5 10 ^3/uL (1.6-8.6); Neutrophils % (auto) 80.9 % (37.0-80.0); Nucleated Red Blood Cells % 0.2 %; Platelet Count (auto) 67 10^3/uL (140-450); Red Blood Cells 2.55 10^6/uL (4.5-5.90); Red Cell Distribution Width 17.1 % (11.8-14.3); White Blood Cell 5.5 10^3/uL (4.4-10.8)
[2019-11-12] MEDS: SODIUM CHLORIDE 0.9% 1,000 ML IV SCH ×2 (06:35→23:05)
[2019-11-12] MEDS: ACCU-CHEK COMFORT CURVE STRIP VI SCH ×4 (06:36→21:33)
[2019-11-12] MEDS: InsuLIN REG 1unit/0.01ml Soln (100units/ml) SC SCH ×4 (06:36→21:36)
[2019-11-12 06:37] LABS: Potassium 3.6 mmol/L (3.5-5.1)
[2019-11-12 06:43] LABS: Calcium 7.5 mg/dL (8.5-10.1)
--- NOTE | 2019-11-12 08:00 | NUR ---
Opening Shift Note Assumed care of patient, awake and alertx3. No S/S of distress/SOB or pain. Patient requesting to let him sleep. Instructed on POC and to call for assist PRN. Bed at lowest locked position and call light within reach. Will continue to monitor for changes Q1hr and PRN.
--- NOTE | 2019-11-12 08:26 | NUR ---
Dr. Kirk at bedside.
[2019-11-12] MEDS: THIAMINE HCL 100 MG TAB PO SCH (09:46)
[2019-11-12] MEDS: MULTIPLE VITAMINS W/ MINERALS TAB PO SCH (09:46)
[2019-11-12] MEDS: FOLIC ACID 1 MG TAB PO SCH (09:46)
[2019-11-12] MEDS: levoFLOXacin 750MG 150 ML IV SCH (09:47)
[2019-11-12] MEDS: PANTOPRAZOLE 40 MG/10 ML VIAL INJ IV SCH (09:47)
--- NOTE | 2019-11-12 11:04 | NUR ---
I spoke with Felicia at the [facility]-she said this patient is not service connected and is not eligible for SNF placement through them. He would be available for home health benefits-if that is needed call [phone] extension [phone].
--- NOTE | 2019-11-12 12:00 | NUR ---
Dr. Marin at bedside.
--- NOTE | 2019-11-12 12:08 | NUR ---
Family member update Patient's sister, Kathleen provided password, updated on plan of care. Kathleen is refusing to take patient home until he can walk on his. own, will notify
[2019-11-12] MEDS ORDERED: FER325T PO (12:58)
[2019-11-12] MEDS ORDERED: MULT-351 PO (12:58)
[2019-11-12] MEDS ORDERED: SACC250C PO (12:58)
[2019-11-12] MEDS ORDERED: LEVO750T2 PO (12:58)
--- NOTE | 2019-11-12 13:00 | NUR ---
IV iron medication given per MD orders
--- NOTE | 2019-11-12 15:00 | NUR ---
Patient pulled out iv line. When asked patient why he pulled IV catheter out he stated "I don't know". Patient seems to be getting more confused. Will notify MD. Complete bed linen changed with help of Sofi NORMAN.
--- NOTE | 2019-11-12 16:45 | NUR ---
Assessment Patient is a 64-year old male. Assessment was completed with patient sister Kathleen ). Per Kathleen prior to admission patient lived home with her and functioned independently. Per Kathleen patient did not have any medical equipment. Advised Kathleen there is a social service consult for SNF placement. Informed ARIEL Wang contact the [facility] and patient is no service connected therefore, they will not be able to assist with SNF placement. Kathleen requested information on how to apply for [facility] for patient. Provided her with Ray information. Informed Kathleen she has the right to participate in all discharge planning. Kathleen verbalized understanding and agreed to discharge plan. Informed BRIDGET Rosenberg and , Dr. Marin. Addendum: 11/12/19 at 1646 by EDMOND HALL Amended: Links added.
--- NOTE | 2019-11-12 17:23 | NUR ---
Patient is confused, patient continues to remove tele-box. Will continue to monitor. Paged Charge nurse.
[2019-11-12] MEDS: FERROUS SULFATE 325 MG TAB PO SCH (18:00)
--- NOTE | 2019-11-12 18:04 | NUR ---
Patient is refusing IV insertion at this moment. Will try again.
--- NOTE | 2019-11-12 18:17 | NUR ---
Patient will be moved closer to the nurses station for safety. Charge Nurse aware.
--- NOTE | 2019-11-12 19:20 | NUR ---
OPENING SHIFT NOTE Assumed care of patient who is A&O x3. Currently on RA with no s/s of distress. Reports 6/10 pain to right side of neck. Pain management options discussed. Patient currently has no IV access. Specialty mattress in place and SCDs on. POC discussed with patient who verbalizes understanding. Bed is in low locked position with side rails up x2 call light within reach. Patient to be moved to [facility] with sitter for safety.
--- NOTE | 2019-11-12 20:50 | NUR ---
PATIENT RELOCATION Patient moved to room 274-B with all personal belongings. Sitter present in room for safety.
--- NOTE | 2019-11-12 21:05 | NUR ---
IV insertion IV access obtained, via clean sterile technique by inserting 20 gauge catheter at the left wrist after 1 attempt. IV secured properly. No trauma to site. Patient tolerated well.
[2019-11-13] MEDS: HYDROcodone-ACET 5/325MG TAB PO PRN ×3 (02:37→12:15)
[2019-11-13 05:00] VITALS: BP 114/65
[2019-11-13] MEDS: ACCU-CHEK COMFORT CURVE STRIP VI SCH ×4 (06:37→21:42)
[2019-11-13] MEDS: InsuLIN REG 1unit/0.01ml Soln (100units/ml) SC SCH ×4 (06:37→21:43)
--- NOTE | 2019-11-13 07:35 | NUR ---
Opening shift note Assumed care of patient from NOC RN. Patient is Aox2-3, no signs and symptoms of distress noted. Bed is in lowest locked position, side rails up x3, can call light within reach. Updated patient on plan of care and patient verbalized understanding. Will continue to monitor q1hr and PRN.
[2019-11-13] MEDS: FOLIC ACID 1 MG TAB PO SCH (08:51)
[2019-11-13] MEDS: THIAMINE HCL 100 MG TAB PO SCH (08:51)
[2019-11-13] MEDS: MULTIPLE VITAMINS W/ MINERALS TAB PO SCH (08:51)
[2019-11-13] MEDS: FERROUS SULFATE 325 MG TAB PO SCH ×2 (08:51→18:52)
[2019-11-13] MEDS: FAMOTIDINE 20 MG TAB PO SCH (08:52)
[2019-11-13] MEDS: levoFLOXacin 250 MG TAB PO SCH (08:52)
[2019-11-13] MEDS: FLORASTOR (S. BOULARDII) 250 MG CAP PO SCH (08:52)
[2019-11-13 09:24] VITALS: BP 117/66
--- NOTE | 2019-11-13 10:15 | NUR ---
Physician rounding Dr. Marin at bedside. Updated MD on patient status, no new orders received. Will continue care.
[2019-11-13] MEDS ORDERED: PHYTONADIONE(VitK) ORAL Susp 10mg/10ml(1mg/ml) PO ONE (12:30)
[2019-11-13 13:00] VITALS: BP 115/65
[2019-11-13 13:40] LABS: BUN/Creatinine Ratio 36.7; Calcium 7.3 mg/dL (8.5-10.1); Potassium 3.7 mmol/L (3.5-5.1)
[2019-11-13] MEDS: SODIUM CHLORIDE 0.9% 1,000 ML IV SCH (13:50)
--- NOTE | 2019-11-13 14:50 | NUR ---
Paged Paged Dr. Marin regarding patients pain. Patient verbalized that they are still at a 9/10 of pain after norco. Awaiting call back.
--- NOTE | 2019-11-13 15:00 | NUR ---
Received call back Updated MD dominguez on patient status. No new orders received.
[2019-11-13 17:00] VITALS: BP 116/64
--- NOTE | 2019-11-13 19:25 | NUR ---
End of shift note Endorsed care to NOC BRIDGET Fermin. No s/s of distress noted.
--- NOTE | 2019-11-13 20:05 | NUR ---
open note assumed care of pt. upon entering room pt eyes closed, breathing even and unlabored on room air. pt has sitter at bedside. pt awoke, is alert to self and where he is, unable to recall why he is here and the date. this nurse oriented patient and updated on plan of care. no questions at this time. pt bed locked, low and 2x rails up. pt call light in reach, this nurse encouraged pt to call as needed. this nurse to round q1hr and prn.
[2019-11-13] MEDS: CYCLOBENZAPRINE HCL 10 MG TAB PO SCH (21:42)
[2019-11-13 22:00] VITALS: BP 126/70
[2019-11-14] MEDS: HYDROcodone-ACET 5/325MG TAB PO PRN (00:35)
--- NOTE | 2019-11-14 00:48 | NUR ---
pt found down by, upon entering room pt awake, alert. pt reports getting up to use restroom, tripping on lebron and hitting left side of head, causing laceration to left eye brow. this nurse to page hospitalist and report incident. pt has no complaint at this time. call light in reach. Addendum: 11/14/19 at 0109 by JONES TONEY RN RN wrong patient, disregard note
[2019-11-14 05:00] VITALS: BP 126/70
[2019-11-14] MEDS: InsuLIN REG 1unit/0.01ml Soln (100units/ml) SC SCH ×4 (07:00→22:00)
[2019-11-14] MEDS: ACCU-CHEK COMFORT CURVE STRIP VI SCH ×4 (07:17→22:00)
--- NOTE | 2019-11-14 07:30 | NUR ---
Opening shift note Assumed care of patient from [facility] BRIDGET Fermin. Patient is Aox3, no signs and symptoms of distress noted. Bed is in lowest locked position, side rails up x3, can call light within reach, occupational health and safety manager at bedside. Updated patient on plan of care and patient verbalized understanding. Will continue to monitor q1hr and PRN.
[2019-11-14 09:00] VITALS: BP 124/73
[2019-11-14] MEDS: THIAMINE HCL 100 MG TAB PO SCH (09:03)
[2019-11-14] MEDS: FOLIC ACID 1 MG TAB PO SCH (09:03)
[2019-11-14] MEDS: FERROUS SULFATE 325 MG TAB PO SCH ×2 (09:03→18:40)
[2019-11-14] MEDS: FAMOTIDINE 20 MG TAB PO SCH (09:04)
[2019-11-14] MEDS: MULTIPLE VITAMINS W/ MINERALS TAB PO SCH (09:04)
[2019-11-14] MEDS: levoFLOXacin 250 MG TAB PO SCH (09:04)
[2019-11-14] MEDS: FLORASTOR (S. BOULARDII) 250 MG CAP PO SCH (09:04)
[2019-11-14] MEDS: SODIUM CHLORIDE 0.9% 1,000 ML IV SCH (09:09)
--- NOTE | 2019-11-14 12:00 | NUR ---
WOUND CARE NOTE: IN TO SEE PATIENT FOR WOUND RE-ASSESSMENT OF DTI TO SACRUM. CURRENT JAYDEN SCORE IS 18, PATIENT IS ABLE TO SELF TURN/REPOSITION SELF. PATIENT'S DTI HAS CONTINUED TO EVOLVE, OPEN TO STAGE 3 WITH ADIPOSE TISSUE NOTED WITHIN OPEN WOUND BED AREA. PERIWOUND IS PALE RED, PINK. SCANT SEROUS DRAINAGE NOTED. WOUND PHOTO TAKEN FOR REFERENCE. APPLIED THERAHONEY, OPTIFOAM GENTLE SACRAL DRESSING TO WOUND. PATIENT REPOSITIONED ONTO LEFT SIDE. RECOMMEND: DAILY/PRN DRESSING CHANGE TO WOUND ON SACRUM, CONTINUATION WITH ALL OTHER WOUND CARE ORDERS PREVIOUSLY PRESCRIBED BY MD. WOUND CARE TEAM WILL CONTINUED TO MONITOR. Addendum: 11/14/19 at 1655 by Yissel Javier RN Amended: Links added.
[2019-11-14 13:00] VITALS: BP 129/74
--- NOTE | 2019-11-14 13:40 | NUR ---
Per dayna from physical therapy patient is not stable to be discharged home. Per dayna he will notify MD dominguez.
--- NOTE | 2019-11-14 13:40 | NUR ---
Physical therapy Spoke with Augie from physical therapy. Per augie patient is not ready for discharge and needs to work with physical therapy. Per augie he will inform Dr. Marin.
--- NOTE | 2019-11-14 14:03 | NUR ---
Nutrition Followup Note Wt 59.1 kg Pt was alert and oriented. Pt expressed interest in receiving Glucerna shakes. Spoke with RN and RN said she would put Glucerna shakes approved by in orders. Pt with inadequate po intake aeb pt with avg po intake of 33% x 2 days. Est energy needs [id number] (25-30 kcal/kg BW 73.3kg) Est protein needs 73-88g (1-1.2g/kg BW 73.3kg r/t wounds, low alb) will reassess prn Labs: GLUC 121H, BUN 54H, Creat 1.47H, Ca 7.3L, Alb 1.9L BM: 2 BMs 11/10 per RN doc Skin: BS 18 mod risk, pt with wounds on sacrum and foot, full details in long term care administrator doc. PES: Increased protein needs r/t increased protein needs for wound healing aeb pt with wounds on head, sacrum, and foot Altered nutrition related labs r/t current and chronic medical condition aeb pt with hyperglycemia, severe hypoalb Comments: 1) continue to monitor po intake, labs, skin 2) refer pt to opd on DC 3) continue current plan of care Consider Glucerna 1 carton TID Expected Outcomes/Goals: 1) Pt po intake >75% 2) pt wounds to improve 3) f/u 3-5 days
--- NOTE | 2019-11-14 14:15 | NUR ---
Pt adamantly declined second PT tx for today. Addendum: 11/14/19 at 1501 by Augie Cox POST ACUTE CARE NURSE Amended: Links added.
--- NOTE | 2019-11-14 15:30 | NUR ---
Paged physician paged MD Marin awaiting call back.
--- NOTE | 2019-11-14 15:55 | NUR ---
Received call back from MD Sarai Henry regarding dietary recommendations. New orders received, will follow through and will continue care.
[2019-11-14 17:00] VITALS: BP 124/71
[2019-11-14] MEDS: MAGIC MOUTHWASH 55 ML SUSP MT SCH ×2 (18:40→22:00)
--- NOTE | 2019-11-14 19:13 | NUR ---
End of shift note Endorsed care to noc BRIDGET Fermin. No s/s of distress noted.
--- NOTE | 2019-11-14 21:06 | NUR ---
pt agitated, states "i wanna go home, i dont care". pt made aware that his sister was requesting that pt remain until sunday for further physical therapy. despite explanation, pt requests to speak with sister, this nurse nurse provided sitter with contact info and pt presently speaking with her.
[2019-11-14 22:00] VITALS: BP 120/62
[2019-11-14] MEDS: CYCLOBENZAPRINE HCL 10 MG TAB PO SCH (22:00)
[2019-11-14] MEDS: Glucerna Carbsteady SHAKE Vanilla 8oz PO SCH (22:00)
[2019-11-15] MEDS: HYDROcodone-ACET 5/325MG TAB PO PRN (02:50)
[2019-11-15 05:00] VITALS: BP 108/58
[2019-11-15] MEDS: SODIUM CHLORIDE 0.9% 1,000 ML IV SCH (05:38)
[2019-11-15] MEDS: MAGIC MOUTHWASH 55 ML SUSP MT SCH ×4 (06:35→21:48)
[2019-11-15] MEDS: ACCU-CHEK COMFORT CURVE STRIP VI SCH ×4 (06:36→21:53)
[2019-11-15] MEDS: InsuLIN REG 1unit/0.01ml Soln (100units/ml) SC SCH ×4 (06:36→21:49)
[2019-11-15] MEDS: Glucerna Carbsteady SHAKE Vanilla 8oz PO SCH ×4 (06:48→21:48)
--- NOTE | 2019-11-15 07:20 | NUR ---
OPENING NOTE RECEIVED REPORT FROM KHADIJAH RN, POC PT TO INCREASE MOBILITY AND STRENGTH, POSSIBLE D/ ON SUNDAY IF ABLE TO AMBULATE AND FUNCTION WITH MIN ASSIST. PATIENT EATING BREAKFAST IN BED. NO C/O PAIN, NO S/S OF DISTRESS. WILL CONTINUE TO MONITOR.
[2019-11-15 07:36] LABS: BUN/Creatinine Ratio 37.2; Calcium 7.4 mg/dL (8.5-10.1); Potassium 3.9 mmol/L (3.5-5.1)
[2019-11-15 08:00] VITALS: BP 99/55
[2019-11-15] MEDS: FERROUS SULFATE 325 MG TAB PO SCH ×2 (08:30→18:10)
--- NOTE | 2019-11-15 10:00 | NUR ---
Pt refused PT treatment stating he is too tired. Pt states he will participate if I return later.
[2019-11-15] MEDS: FAMOTIDINE 20 MG TAB PO SCH (10:05)
[2019-11-15] MEDS: FOLIC ACID 1 MG TAB PO SCH (10:05)
[2019-11-15] MEDS: FLORASTOR (S. BOULARDII) 250 MG CAP PO SCH (10:05)
[2019-11-15] MEDS: MULTIPLE VITAMINS W/ MINERALS TAB PO SCH (10:05)
[2019-11-15] MEDS: THIAMINE HCL 100 MG TAB PO SCH (10:05)
[2019-11-15] MEDS: levoFLOXacin 250 MG TAB PO SCH (10:05)
--- NOTE | 2019-11-15 11:50 | NUR ---
PATIENT UP WITH ASSISTANCE WITH PHYSICAL THERAPY.
[2019-11-15 12:00] VITALS: BP 123/74
[2019-11-15 16:00] VITALS: BP 120/70
--- NOTE | 2019-11-15 20:00 | NUR ---
Opening Shift Note Assumed care of patient, awake and alert. No S/S of distress/SOB or pain. Instructed on POC and to call for assist PRN, will continue to monitor for changes Q1hr and PRN.
[2019-11-15] MEDS: CYCLOBENZAPRINE HCL 10 MG TAB PO SCH (21:48)
[2019-11-15 22:00] VITALS: BP 123/68
[2019-11-16] MEDS: SODIUM CHLORIDE 0.9% 1,000 ML IV SCH (00:30)
[2019-11-16 05:08] VITALS: BP 127/64
[2019-11-16 05:48] LABS: Basophils # (auto) 0 10 ^3/uL (0-0.2); Eosinophils # (auto) 0 10 ^3/uL (0-0.8); Neutrophils # (auto) 2.6 10 ^3/uL (1.6-8.6); Platelet Count (auto) 50 10^3/uL (140-450)
[2019-11-16 05:51] LABS: Basophils % (auto) 0.3 % (0.0-2.0); Eosinophils % (auto) 0.9 % (0.0-7.0); Hematocrit 22.6 % (41.0-53.0); Hemoglobin 7.6 g/dL (13.5-17.5); Lymphocytes # (auto) 0.6 10 ^3/uL (0.4-5.4); Lymphocytes % (auto) 17.4 % (10.0-50.0); Mean Corpuscular Hemoglobin 31.6 pg (28.0-32.0); Mean Corpuscular Hgb Conc. 33.8 g/dL (32.0-36.0); Mean Corpuscular Volume 93.5 fL (80.0-100.0); Monocytes # (auto) 0.3 10 ^3/uL (0-1.3); Monocytes % (auto) 9.5 % (0.0-12.0); Neutrophils % (auto) 71.9 % (37.0-80.0); Nucleated Red Blood Cells % 0.2 %; Red Blood Cells 2.41 10^6/uL (4.5-5.90); Red Cell Distribution Width 17.8 % (11.8-14.3); White Blood Cell 3.7 10^3/uL (4.4-10.8)
[2019-11-16 06:01] LABS: BUN/Creatinine Ratio 36.6; Calcium 7.4 mg/dL (8.5-10.1); Potassium 3.9 mmol/L (3.5-5.1)
[2019-11-16] MEDS: Glucerna Carbsteady SHAKE Vanilla 8oz PO SCH ×4 (06:16→22:09)
[2019-11-16] MEDS: MAGIC MOUTHWASH 55 ML SUSP MT SCH ×4 (06:16→22:00)
[2019-11-16] MEDS: ACCU-CHEK COMFORT CURVE STRIP VI SCH ×4 (06:28→22:09)
[2019-11-16] MEDS: InsuLIN REG 1unit/0.01ml Soln (100units/ml) SC SCH ×4 (06:29→22:00)
--- NOTE | 2019-11-16 07:30 | NUR ---
Opening Shift Note RECEIVED REPORT FROM NOC RN. Assumed care of patient, awake and alert. No S/S of distress/SOB or pain. BED IN LOWEST, LOCKED POSITION WITH SIDERAILS UP x2 AND CALL LIGHT WITHIN REACH AND SITTER AT BEDSIDE. Instructed on POC and to call for assist PRN, will continue to monitor for changes Q1hr and PRN.
[2019-11-16] MEDS: FERROUS SULFATE 325 MG TAB PO SCH ×2 (08:17→17:55)
[2019-11-16] MEDS: FOLIC ACID 1 MG TAB PO SCH (10:29)
[2019-11-16] MEDS: THIAMINE HCL 100 MG TAB PO SCH (10:29)
[2019-11-16] MEDS: FAMOTIDINE 20 MG TAB PO SCH (10:30)
[2019-11-16] MEDS: FLORASTOR (S. BOULARDII) 250 MG CAP PO SCH (10:30)
[2019-11-16] MEDS: levoFLOXacin 250 MG TAB PO SCH (10:30)
[2019-11-16] MEDS: MULTIPLE VITAMINS W/ MINERALS TAB PO SCH (10:30)
[2019-11-16] MEDS ORDERED: PHYTONADIONE(VitK) ORAL Susp 10mg/10ml(1mg/ml) PO ONE (12:00)
[2019-11-16 17:00] VITALS: BP 116/68
--- NOTE | 2019-11-16 19:00 | NUR ---
OPENING NOTE Received report from day shift RN. Patient is resting in bed at this time with no s/s of distress. Bed is in lowest/locked position with side rails up X's 2 and call light is within reach of patient. Bed alarm is set for safety. Will educate patient POC and to use call light when in need of assistance. Will continue care.
[2019-11-16 22:00] VITALS: BP 117/69
[2019-11-16] MEDS: CYCLOBENZAPRINE HCL 10 MG TAB PO SCH (22:08)
[2019-11-16 22:24] VITALS: BP 133/84
[2019-11-17] MEDS: SODIUM CHLORIDE 0.9% 1,000 ML IV SCH ×2 (03:57→16:12)
--- NOTE | 2019-11-17 04:23 | NUR ---
DRESSING CHANGE wound care and dressing change on sacrum. Will continue care.
[2019-11-17 05:00] VITALS: BP 128/72
[2019-11-17 05:55] LABS: Potassium 4.4 mmol/L (3.5-5.1)
[2019-11-17 05:59] LABS: INR 1.3 (0.9-1.15)
[2019-11-17] MEDS: MAGIC MOUTHWASH 55 ML SUSP MT SCH ×2 (06:00→12:00)
[2019-11-17 06:01] LABS: BUN/Creatinine Ratio 35.6; Calcium 7.4 mg/dL (8.5-10.1)
[2019-11-17 06:03] LABS: Basophils # (auto) 0 10 ^3/uL (0-0.2); Basophils % (auto) 0.5 % (0.0-2.0); Eosinophils # (auto) 0 10 ^3/uL (0-0.8); Hematocrit 23.7 % (41.0-53.0); Hemoglobin 8.1 g/dL (13.5-17.5); Lymphocytes # (auto) 0.7 10 ^3/uL (0.4-5.4); Lymphocytes % (auto) 19.2 % (10.0-50.0); Mean Corpuscular Hemoglobin 32.2 pg (28.0-32.0); Mean Corpuscular Hgb Conc. 33.9 g/dL (32.0-36.0); Mean Corpuscular Volume 94.9 fL (80.0-100.0); Monocytes # (auto) 0.3 10 ^3/uL (0-1.3); Monocytes % (auto) 8.7 % (0.0-12.0); Neutrophils # (auto) 2.7 10 ^3/uL (1.6-8.6); Neutrophils % (auto) 70.6 % (37.0-80.0); Platelet Count (auto) 44 10^3/uL (140-450); Red Cell Distribution Width 18.4 % (11.8-14.3); White Blood Cell 3.9 10^3/uL (4.4-10.8)
[2019-11-17] MEDS: InsuLIN REG 1unit/0.01ml Soln (100units/ml) SC SCH ×3 (06:49→16:12)
[2019-11-17] MEDS: Glucerna Carbsteady SHAKE Vanilla 8oz PO SCH ×2 (06:49→12:00)
[2019-11-17] MEDS: ACCU-CHEK COMFORT CURVE STRIP VI SCH ×3 (06:49→16:13)
--- NOTE | 2019-11-17 07:30 | NUR ---
Opening Shift Note Assumed care of patient, awake and alert. No S/S of distress/SOB or pain. Updated on POC and instructed to call for assistance PRN, patient verbalized understanding. Bed locked in lowest position, side rails up x2, call light within reach. Safety precautions in place. Will continue to monitor for changes Q1hr and PRN.
[2019-11-17] MEDS: FERROUS SULFATE 325 MG TAB PO SCH (08:18)
[2019-11-17 09:00] VITALS: BP 123/70
[2019-11-17] MEDS: FAMOTIDINE 20 MG TAB PO SCH (09:47)
[2019-11-17] MEDS: THIAMINE HCL 100 MG TAB PO SCH (09:47)
[2019-11-17] MEDS: FLORASTOR (S. BOULARDII) 250 MG CAP PO SCH (09:47)
[2019-11-17] MEDS: MULTIPLE VITAMINS W/ MINERALS TAB PO SCH (09:47)
[2019-11-17] MEDS: levoFLOXacin 250 MG TAB PO SCH (09:47)
[2019-11-17] MEDS: FOLIC ACID 1 MG TAB PO SCH (09:47)
[2019-11-17] MEDS ORDERED: FOLI1TAB6 PO (10:34)
[2019-11-17] MEDS ORDERED: THIA100T10 PO (10:34)
[2019-11-17] MEDS ORDERED: LEVO750T2 PO (10:34)
[2019-11-17] MEDS ORDERED: SACC250C PO (10:34)
--- NOTE | 2019-11-17 10:55 | NUR ---
I called [facility] [phone] extension [phone] and spoke with Ivelisse who transferred me to Corine-I let her know that patient is ready to be discharged home and needs home health and FWW. Per Corine-fax order to [phone] and she will forward it to coordinator Beny Aldrich ([phone] extension [phone]) who is assigned to this case.
[2019-11-17 12:59] VITALS: BP 123/70
[2019-11-17 13:00] VITALS: BP 110/62
--- NOTE | 2019-11-17 16:42 | NUR ---
Discharge home Discharge instructions given as ordered. Encourage to follow up with PMD as instructed. All questions and concerns addressed. Patient verbalized understanding. Medication reconciliation form completed and copy given to patient. IV removed with catheter intact, pressure dressing applied. Telemetry unit returned to ICU. Patient taken to vehicle via wheelchair with all personal belongings, accompanied by staff. No distress noted at time of departure.
== END 2019-11-17 16:42 | disposition home health service (06) | DRG 871 ==
LOC: EDBD 18:30 → ER 18:35 → TELE 18:36 → TELE-WESTW 11-06 15:02 → ICU WEST 11-06 15:07 → TELE-WESTW 11-07 01:47
PROVIDERS: ADMIT Nurse Practitioner; ATTEND Internal Medicine
PROC: 00JU3ZZ Inspection of Spinal Canal, Percutaneous Approach (ICD-10-PCS; principal; 2019-11-05)
DX: A41.9 Sepsis, unspecified organism (principal); L89.153 Pressure ulcer of sacral region, stage 3; G93.41 Metabolic encephalopathy; N17.0 Acute kidney failure with tubular necrosis; I50.43 Acute on chronic combined systolic (congestive) and diastolic (congestive) heart failure; I21.A1 Myocardial infarction type 2; J69.0 Pneumonitis due to inhalation of food and vomit; E87.1 Hypo-osmolality and hyponatremia; K76.6 Portal hypertension; I13.0 Hypertensive heart and chronic kidney disease with heart failure and stage 1 through stage 4 chronic kidney disease, or unspecified chronic kidney disease; D61.818 Other pancytopenia; D68.9 Coagulation defect, unspecified; N39.0 Urinary tract infection, site not specified; J02.0 Streptococcal pharyngitis; E11.9 Type 2 diabetes mellitus without complications; D69.6 Thrombocytopenia, unspecified; K74.60 Unspecified cirrhosis of liver; R16.1 Splenomegaly, not elsewhere classified; N18.9 Chronic kidney disease, unspecified; E11.22 Type 2 diabetes mellitus with diabetic chronic kidney disease; D63.8 Anemia in other chronic diseases classified elsewhere; M47.812 Spondylosis without myelopathy or radiculopathy, cervical region; B95.61 Methicillin susceptible Staphylococcus aureus infection as the cause of diseases classified elsewhere; B19.20 Unspecified viral hepatitis C without hepatic coma; Z82.3 Family history of stroke; Z82.49 Family history of ischemic heart disease and other diseases of the circulatory system; Z83.3 Family history of diabetes mellitus; Z91.81 History of falling; Z20.828 Contact with and (suspected) exposure to other viral communicable diseases
CPT/HCPCS: 31720; 36415; 36600; 51702; 62270; 70450; 71045; 71275; 72125; 76705; 76775; 78226; 80048; 80053; 80061; 80202; 80307; 80320; 81001; 82140; 82150; 82270; 82728; 82805; 82962; 83036; 83540; 83550; 83605; 83615; 83690; 83735; 83880; 84443; 84484; 85007; 85025; 85027; 85379; 85610; 85730; 86141; 86704; 86706; 86708; 86803; 86850; 86900; 86901; 87040; 87077; 87081; 87086; 87088; 87186; 87340; 87804; 87880; 93005; 93306; 96361; 96365; 96366; 96367; 97110; 97116; 97163; 97530; C9113; G0378; J0696; J1756; J1815; J1956; J2001; J2185; J2543; J3430; J7060

== ENCOUNTER 2020-04-19 13:48 | Inpatient (IN) | payer MEDICARE, MEDICAID ==
[~2020-04-19] VITALS: Ht 170.2 cm; Wt 73.1 kg
[~2020-04-19 13:48] MED LIST: FER325T PO; FOLI1TAB6 PO; LEVO750T8 PO; MULT-351 PO; SACC250C PO; THIA100T10 PO
[2020-04-19] MEDS: fentaNYL Drip 2500mCg/250mlNS 250 ML IV SCH (14:00)
[2020-04-19] MEDS: MIDAZOLAM DRIP 50 mg/50mL 50 ML IV SCH (14:00)
[2020-04-19] MEDS ORDERED: NOREPINEPHRINE 8 MG/250ML KIT 250 ML IV SCH (14:30)
[2020-04-19 14:38] LABS: Basophils % (auto) 0.4 % (0.0-2.0); Lymphocytes # (auto) 1.4 10 ^3/uL (0.4-5.4)
[2020-04-19] MEDS: DOPamine 1600MCG/ML D5W 250 ML IV SCH ×2 (14:38→18:09)
[2020-04-19 14:39] LABS: Basophils # (auto) 0 10 ^3/uL (0-0.2); Eosinophils # (auto) 0.1 10 ^3/uL (0-0.8); Mean Corpuscular Hemoglobin 34.7 pg (28.0-32.0); Mean Corpuscular Hgb Conc. 31.8 g/dL (32.0-36.0); Red Blood Cells 1.95 10^6/uL (4.5-5.90)
[2020-04-19 14:41] LABS: Eosinophils % (auto) 2.9 % (0.0-7.0); Hematocrit 21.3 % (41.0-53.0); Lymphocytes % (auto) 34.5 % (10.0-50.0); Mean Corpuscular Volume 109.3 fL (80.0-100.0); Monocytes # (auto) 0.5 10 ^3/uL (0-1.3); Monocytes % (auto) 12.9 % (0.0-12.0); Neutrophils % (auto) 49.3 % (37.0-80.0); Nucleated Red Blood Cells % 1.8 %; Platelet Count (auto) 56 10^3/uL (140-450); Red Cell Distribution Width 17.9 % (11.8-14.3); White Blood Cell 4.2 10^3/uL (4.4-10.8)
[2020-04-19 14:45] LABS: Hemoglobin 6.8 g/dL (13.5-17.5)
[2020-04-19 14:50] LABS: INR 1.33 (0.9-1.15)
[2020-04-19 14:57] LABS: BUN/Creatinine Ratio 26.3; Calcium 7.9 mg/dL (8.5-10.1)
[2020-04-19 15:00] LABS: Bilirubin, Total 0.4 mg/dL (0.2-1.0); Total Protein 6.3 g/dL (6.4-8.2)
[2020-04-19 15:01] LABS: Lactic Acid w/Reflex 7.4 mmol/L (0.4-2.0)
[2020-04-19 15:04] LABS: Magnesium 2.6 mg/dL (1.6-2.6)
[2020-04-19 15:25] LABS: Urine Bacteria MANY /hpf (None Seen); Urine Blood 2+ /uL (Negative); Urine Mucus FEW (None Seen); Urine Specific Gravity 1.017 (1.001-1.035); Urine Sperm PRESENT /hpf (None Seen); Urine WBC 25 /hpf (0 - 3)
[2020-04-19 15:33] LABS: Amphetamine Screen, Urine NEGATIVE (NEGATIVE); Barbiturate Scree,Urine NEGATIVE (NEGATIVE); Benzodiazephine Screen, Urine NEGATIVE (NEGATIVE); Cannabinoid Screen, Urine NEGATIVE (NEGATIVE); Cocaine Screen, Urine NEGATIVE (NEGATIVE); Opiate Scree,Urine NEGATIVE (NEGATIVE); Phencyclidine Screen, Urine NEGATIVE (NEGATIVE)
[2020-04-19] MEDS ORDERED: MORPHINE SULF INJ 2 MG/ML SYRINGE 1ML IV PRN ×3 (17:15→18:45)
[2020-04-19] MEDS ORDERED: NITROGLYCERIN 0.4 MG SL TAB SL PRN ×2 (17:15→18:45)
[2020-04-19] MEDS ORDERED: SODIUM CHLORIDE 0.9% 2,000 ML IV ONE (17:15)
[2020-04-19 18:40] VITALS: BP 127/63
[2020-04-19] MEDS ORDERED: VANCOMYCIN PER PHARMACY 0 MG IV SCH (18:45)
[2020-04-19] MEDS ORDERED: DOCUSATE SOD 100 MG CAP PO PRN (18:45)
[2020-04-19] MEDS ORDERED: ALUM & MAG HYDROX-SIMETH LIQ(MAALOX) 30 ML PO PRN (18:45)
[2020-04-19] MEDS ORDERED: HYDROcodone-ACET 5/325MG TAB PO PRN (18:45)
[2020-04-19] MEDS ORDERED: PIPERACILLIN-TAZOB 3.375GM 100 ML IV ONE (18:45)
[2020-04-19] MEDS ORDERED: INFLUENZA QUAD 2020-2021 0.5 ML SYRG IM ONE (18:45)
[2020-04-19] MEDS ORDERED: ONDANSETRON HCL 4 MG/2 ML VIAL IV PRN (18:45)
[2020-04-19] MEDS ORDERED: LORazepam 0.5 MG TAB PO PRN (18:45)
[2020-04-19] MEDS ORDERED: ACETAMINOPHEN 325 MG TAB PO PRN (18:45)
[2020-04-19] MEDS ORDERED: PNEUMOCOCCAL VACC POLYS 25 MCG/0.5 ML VIAL IM ONE (18:45)
[2020-04-19] MEDS ORDERED: VANCOMYCIN 1GM/250ML 250 ML IV ONE (22:00)
[2020-04-19] MEDS: PANTOPRAZOLE 40 MG/10 ML VIAL INJ IV SCH (22:26)
[2020-04-19 22:27] VITALS: BP 114/67
[2020-04-19 22:40] VITALS: BP 108/56
[2020-04-19 22:55] VITALS: BP 107/59
[2020-04-19 23:25] VITALS: BP 115/59
[2020-04-19 23:55] VITALS: BP 119/63
[2020-04-20] VITALS (65 sets, daily range): BP systolic 85–170; BP diastolic 38–68
[2020-04-20] MEDS ORDERED: FOLIC ACID 1 MG TAB PO ONE (00:15)
[2020-04-20] MEDS ORDERED: MULTIPLE VITAMINS W/ MINERALS TAB PO ONE (00:15)
[2020-04-20] MEDS ORDERED: THIAMINE 100mg/ml INJ (200mg/2ml VIAL) IV ONE (00:15)
[2020-04-20 04:56] LABS: Urine Bacteria FEW /hpf (None Seen); Urine Blood 2+ /uL (Negative); Urine Hyaline Cast MOD /lpf (0 - 2); Urine Specific Gravity 1.015 (1.001-1.035); Urine Sperm PRESENT /hpf (None Seen); Urine WBC 15 /hpf (0 - 3)
[2020-04-20 05:31] LABS: Alcohol, Urine < 3.0 mg/dL (0-10); Amphetamine Screen, Urine NEGATIVE (NEGATIVE); Barbiturate Scree,Urine NEGATIVE (NEGATIVE); Benzodiazephine Screen, Urine POSITIVE (NEGATIVE); Cannabinoid Screen, Urine NEGATIVE (NEGATIVE); Cocaine Screen, Urine NEGATIVE (NEGATIVE); Opiate Scree,Urine NEGATIVE (NEGATIVE); Phencyclidine Screen, Urine NEGATIVE (NEGATIVE)
[2020-04-20] MEDS: PIPERACILLIN-TAZOB 3.375GM 100 ML IV SCH ×3 (05:44→19:00)
[2020-04-20 07:20] LABS: Basophils # (auto) 0 10 ^3/uL (0-0.2); Eosinophils # (auto) 0 10 ^3/uL (0-0.8); Hemoglobin 7.3 g/dL (13.5-17.5); Lymphocytes # (auto) 0.2 10 ^3/uL (0.4-5.4); Lymphocytes % (auto) 4.6 % (10.0-50.0); Monocytes # (auto) 0.5 10 ^3/uL (0-1.3); Monocytes % (auto) 11.7 % (0.0-12.0); Neutrophils # (auto) 3.3 10 ^3/uL (1.6-8.6); Neutrophils % (auto) 82.5 % (37.0-80.0); Red Cell Distribution Width 17.4 % (11.8-14.3)
[2020-04-20 07:22] LABS: Basophils % (auto) 0.1 % (0.0-2.0); Eosinophils % (auto) 1.1 % (0.0-7.0); Hematocrit 21.1 % (41.0-53.0); Mean Corpuscular Hemoglobin 35.2 pg (28.0-32.0); Mean Corpuscular Hgb Conc. 34.4 g/dL (32.0-36.0); Mean Corpuscular Volume 102.4 fL (80.0-100.0); Nucleated Red Blood Cells % 0.2 %; Platelet Count (auto) 46 10^3/uL (140-450); Red Blood Cells 2.07 10^6/uL (4.5-5.90)
[2020-04-20 07:26] LABS: INR 1.34 (0.9-1.15)
[2020-04-20 07:39] LABS: Potassium 4.6 mmol/L (3.5-5.1)
[2020-04-20 07:48] LABS: Albumin 2.6 g/dL (3.4-5.0); BUN/Creatinine Ratio 26.3; Bilirubin, Total 1.7 mg/dL (0.2-1.0); Calcium 7.9 mg/dL (8.5-10.1); Total Protein 5.5 g/dL (6.4-8.2)
[2020-04-20] MEDS: DOPamine 1600MCG/ML D5W 250 ML IV SCH ×2 (08:28→21:11)
[2020-04-20] MEDS: FOLIC ACID 1 MG TAB PO SCH (09:03)
[2020-04-20] MEDS: PANTOPRAZOLE 40 MG/10 ML VIAL INJ IV SCH ×2 (09:03→22:00)
[2020-04-20] MEDS: LEVOTHYROXINE SODIUM 50 MCG TAB PO SCH (09:03)
[2020-04-20] MEDS: FERROUS SULFATE 300 MG/5 ML ORAL LIQ PO SCH ×3 (09:03→18:00)
[2020-04-20] MEDS: SPIRONOLACTONE 25 MG TAB PO SCH (09:03)
[2020-04-20] MEDS: THIAMINE HCL 100 MG TAB PO SCH (09:04)
[2020-04-20] MEDS: MULTIPLE VITAMIN ORAL 15 ML Soln PO SCH (09:31)
[2020-04-20] MEDS ORDERED: MULTIPLE VITAMINS W/ MINERALS TAB PO SCH (10:00)
--- NOTE | 2020-04-20 10:30 | NUR ---
Admit to ICU from ER on vent ANNELIESE CARRILLO admitted to ICU via gurney on java lead architect, intubated and being bagged by Respiratory Therapist. Patient transfered to bed, connected to mechanical ventilator by therapist, ESTEFANI at bedside. Patient connected to ICU monitoring, weighed by bedscale. NOTE: PATIENT CURRENTLY ON VERSED, FENTANYL AND DOPAMINE GTTS - SEE IV SPREADSHEET. PATIENT OPENS EYES WHEN REPOSITIONED BUT REBOLLEDO NOT TRACK. NO COUGH/GAG NOTED, NO WITHDRAWAL OF EXTREMITIES TO PAINFUL STIMULI. PERRLA 3MM AND SLUGGISH.
[2020-04-20] MEDS ORDERED: DEXTROSE (50%) 50ML SYRG IV PRN (11:30)
--- NOTE | 2020-04-20 11:30 | NUR ---
DR CHAMORRO VISITS - ORDERS RECEIVED.
--- NOTE | 2020-04-20 11:35 | NUR ---
CELL MAKER OBTAINED CONSENT FOR PARACENTESIS FOR PATIENT PER PATIENT'S SISTER. - STATES SHE HAS POA AND WILL BRING DOCUMENTS TO HOSPITAL TOMORROW
[2020-04-20] MEDS: InsuLIN REG 1unit/0.01ml Soln (100units/ml) SC SCH ×2 (11:37→18:00)
[2020-04-20] MEDS: ACCU-CHEK COMFORT CURVE STRIP VI SCH ×2 (11:37→18:17)
[2020-04-20] MEDS ORDERED: FUROSEMIDE 40 MG/4 ML VIAL IV ONE (11:45)
--- NOTE | 2020-04-20 11:45 | NUR ---
DR ESCOBAR VISITS-ORDERS RECEIVED.
--- NOTE | 2020-04-20 12:45 | NUR ---
PARACENTESIS DONE AT BEDSIDE PER DR LOWRY UNDER LOCA ANESTHETIC. 8300ML RICHIE FLUID OBTAINED AND TAKEN TO LAB/PATHOLOGY PER ORDERS. PATIENT [place] PROCEDURE WELL. BP NOTED TO DECREASE BY 10-20 POINTS - WILL CONTINUE TO MONITOR. LARGE BANDAID PLACED TO RT ABD WITHOUT BLEEDING OR HEMATOMA NOTED.
--- NOTE | 2020-04-20 13:15 | NUR ---
PCR COVID SWAB COLLECTED AND WALKED TO LAB.
--- NOTE | 2020-04-20 15:00 | NUR ---
BENEFIT SPECIALIST UPDATED PATIENT'S SISTER ON PATIENT CONDITION - VERBALIZED UNDERSTANDING.
--- NOTE | 2020-04-20 16:00 | NUR ---
DR FLOWERS VISITS AND EXAMINES PATIENT-NO NEW ORDERS RECEIVED.
--- NOTE | 2020-04-20 18:30 | NUR ---
FOOD ASSEMBLER KITCHEN UPDATED PATIENT'S SISTER ANSLEMO ON COVID TEST RESULT - VERBALIZED UNDERSTANDING.
[2020-04-20] MEDS: fentaNYL Drip 2500mCg/250mlNS 250 ML IV SCH (19:00)
[2020-04-20] MEDS: MIDAZOLAM DRIP 50 mg/50mL 50 ML IV SCH (19:00)
[2020-04-21] VITALS (103 sets, daily range): BP systolic 92–136; BP diastolic 43–91
[2020-04-21 04:16] LABS: Basophils # (auto) 0 10 ^3/uL (0-0.2); Eosinophils # (auto) 0.1 10 ^3/uL (0-0.8); Hematocrit 19.1 % (41.0-53.0); Lymphocytes # (auto) 0.5 10 ^3/uL (0.4-5.4); Monocytes # (auto) 0.6 10 ^3/uL (0-1.3); Red Blood Cells 1.88 10^6/uL (4.5-5.90); White Blood Cell 6.2 10^3/uL (4.4-10.8)
[2020-04-21 04:18] LABS: Basophils % (auto) 0.2 % (0.0-2.0); Eosinophils % (auto) 1.2 % (0.0-7.0); Lymphocytes % (auto) 7.7 % (10.0-50.0); Mean Corpuscular Hemoglobin 34.2 pg (28.0-32.0); Mean Corpuscular Hgb Conc. 33.5 g/dL (32.0-36.0); Neutrophils % (auto) 80.9 % (37.0-80.0); Nucleated Red Blood Cells % 0.4 %; Platelet Count (auto) 30 10^3/uL (140-450)
[2020-04-21 04:30] LABS: INR 1.34 (0.9-1.15)
[2020-04-21 04:33] LABS: Potassium 5.1 mmol/L (3.5-5.1)
[2020-04-21 04:48] LABS: Albumin 2.3 g/dL (3.4-5.0); BUN/Creatinine Ratio 26.9; Bilirubin, Total 1.1 mg/dL (0.2-1.0); Total Protein 5.3 g/dL (6.4-8.2)
[2020-04-21] MEDS: MIDAZOLAM DRIP 50 mg/50mL 50 ML IV SCH ×2 (05:07→13:02)
[2020-04-21 05:18] LABS: Hemoglobin 6.4 g/dL (13.5-17.5)
[2020-04-21] MEDS: PIPERACILLIN-TAZOB 3.375GM 100 ML IV SCH ×3 (05:46→13:01)
[2020-04-21] MEDS: ACCU-CHEK COMFORT CURVE STRIP VI SCH ×4 (06:00→18:00)
[2020-04-21] MEDS: InsuLIN REG 1unit/0.01ml Soln (100units/ml) SC SCH ×4 (06:00→18:00)
[2020-04-21] MEDS: LEVOTHYROXINE SODIUM 50 MCG TAB PO SCH (07:00)
[2020-04-21] MEDS: SPIRONOLACTONE 25 MG TAB PO SCH (07:45)
[2020-04-21] MEDS ORDERED: VANCOMYCIN 1GM/250ML 250 ML IV ONE (09:45)
--- NOTE | 2020-04-21 10:00 | NUR ---
DR. CHAMORRO AT BEDSIDE: ORDERS GIVEN MD UPDATED ON PT'S CURRENT STATUS, LABS AND POC FOR TODAY. INFORMED CURRENT HGB LEVEL 6.4, PLT 30. ORDERS GIVEN TO TRANSFUSE 2 UNITS OF PRBC TODAY. OTHER ORDERS GIVEN AND TO BE CARRIED OUT. CONTINUE CARE.
--- NOTE | 2020-04-21 10:20 | NUR ---
DR. ESCOBAR AT BEDSIDE: ORDERS MD UPDATED ON PT'S CURRENT STATUS, LABS AND POC FOR TODAY. VENT CHANGE ORDERS GIVEN AT THIS TIME AND CARRIED OUT BY Bekah PETIT. WILL CARRY OUT ANY OTHER ORDERS GIVEN. CONTINUE CARE.
[2020-04-21] MEDS: DOPamine 1600MCG/ML D5W 250 ML IV SCH (10:21)
[2020-04-21] MEDS: FUROSEMIDE 40 MG/4 ML VIAL IV SCH (10:30)
[2020-04-21] MEDS: PANTOPRAZOLE 40 MG/10 ML VIAL INJ IV SCH ×2 (10:30→21:17)
[2020-04-21] MEDS: MULTIPLE VITAMIN ORAL 15 ML Soln PO SCH (10:30)
[2020-04-21] MEDS: FOLIC ACID 1 MG TAB PO SCH (10:30)
[2020-04-21] MEDS: THIAMINE HCL 100 MG TAB PO SCH (10:30)
[2020-04-21] MEDS: FERROUS SULFATE 300 MG/5 ML ORAL LIQ PO SCH ×3 (10:30→19:07)
--- NOTE | 2020-04-21 10:41 | NUR ---
RATE DECREASED TO 14 AND PEEP DECREASED TO 5CM H20 ORDERED. POX 96%
[2020-04-21] MEDS: OCTREOTIDE ACETATE 100 MCG/ML VL SUBCUT SCH ×2 (12:22→21:28)
[2020-04-21] MEDS: fentaNYL Drip 2500mCg/250mlNS 250 ML IV SCH (13:00)
--- NOTE | 2020-04-21 13:00 | NUR ---
FAMILY CALLED UPDATED PATIENT'S SISTER ON PT'S CURRENT STATUS, LABS AND POC FOR TODAY. WILL CONTINUE CARE. PASSWORD VERIFIED.
--- NOTE | 2020-04-21 16:40 | NUR ---
TRANSFER TO MONITORING SPECIALIST: ICU OVERFLOW BED #2 REPORT GIVEN TO BRIDGET COY. PATIENT TAKEN IN BED TO MONITORING SPECIALIST WITH TELE MONITOR AND BEING BAGGED BY Bekah PETIT AT BEDSIDE. PATIENT'S GTT'S REMAIN, SEDATION CONTINUES AT PREVIOUS RATES. ALL PATIENT BELONGINGS SENT OVER WITH PATIENT. TRANSFER CARE. VS REMAIN STABLE DURING TRANSFER.
--- NOTE | 2020-04-21 19:30 | NUR ---
REPORT RECEIVED, ASSUMED CARE.
[2020-04-21] MEDS: metroNIDAZOLE 500MG/100ML 100 ML IV SCH (21:17)
--- NOTE | 2020-04-21 21:49 | NUR ---
NOTIFIED RX FOR AMPICILLIN IVPB NEEDED.
[2020-04-21] MEDS ORDERED: DEXTROSE 50% SYRINGE 50 ML IV ONE (23:42)
[2020-04-22] VITALS (98 sets, daily range): BP systolic 91–138; BP diastolic 51–73
[2020-04-22] MEDS: AMPICILLIN SOD 2GM INJ 2 GM in SODIUM CHL 0.9% 100 ML IV SCH ×4 (01:17→21:45)
[2020-04-22] MEDS: ACCU-CHEK COMFORT CURVE STRIP VI SCH ×5 (01:18→23:54)
[2020-04-22] MEDS: DOPamine 1600MCG/ML D5W 250 ML IV SCH (02:37)
[2020-04-22 04:17] LABS: White Blood Cell 3.3 10^3/uL (4.4-10.8)
[2020-04-22] MEDS: metroNIDAZOLE 500MG/100ML 100 ML IV SCH ×3 (04:17→20:39)
[2020-04-22 04:19] LABS: Hematocrit 22.6 % (41.0-53.0); Hemoglobin 7.6 g/dL (13.5-17.5); Mean Corpuscular Hgb Conc. 33.4 g/dL (32.0-36.0); Mean Corpuscular Volume 98.8 fL (80.0-100.0); Platelet Count (auto) 25 10^3/uL (140-450); Red Blood Cells 2.29 10^6/uL (4.5-5.90); Red Cell Distribution Width 18.9 % (11.8-14.3)
[2020-04-22 04:29] LABS: Band Neutrophils % (manual) 0; Basophils % (manual) 0 (0.0-2.0); Blast Cells 0; Metamyelocytes % 0; Myelocytes % 0; Promyelocytes % 0; Reactive Lymphocytes 0
[2020-04-22 04:37] LABS: INR 1.22 (0.9-1.15)
[2020-04-22 05:09] LABS: Albumin 2.1 g/dL (3.4-5.0); Bilirubin, Total 1.3 mg/dL (0.2-1.0); Total Protein 5.2 g/dL (6.4-8.2)
[2020-04-22] MEDS: InsuLIN REG 1unit/0.01ml Soln (100units/ml) SC SCH ×5 (06:00→23:54)
[2020-04-22 06:23] LABS: Eosinophils % (manual) 9 (0-7); Lymphocytes % (manual) 27 (10.0-50.0); Monocytes % (manual) 4 (0-12)
[2020-04-22] MEDS: OCTREOTIDE ACETATE 100 MCG/ML VL SUBCUT SCH ×3 (06:42→21:53)
[2020-04-22] MEDS: LEVOTHYROXINE SODIUM 50 MCG TAB PO SCH (06:43)
--- NOTE | 2020-04-22 07:15 | NUR ---
PT CARE REPORT RECEIVED FROM NOC SHIFT RN - VS WNL AT THIS TIME. BED LOW/LOCKED POSITION. PT ON VENT - SEE INTERVENTIONS FOR ASSESSMENT. WILL CONTINUE TO MONITOR PT.
--- NOTE | 2020-04-22 07:58 | NUR ---
SPOKE WITH PT'S SISTER ON PHONE. UPDATE PROVIDED TO FAMILY - ALL QUESTIONS/CONCERNS ADDRESSED TO FAMILY'S SATISFACTION.
[2020-04-22] MEDS: FERROUS SULFATE 300 MG/5 ML ORAL LIQ PO SCH ×3 (08:00→18:29)
--- NOTE | 2020-04-22 08:02 | NUR ---
DR FLOWERS AT BEDSIDE - NEW ORDERS FOR REPEAT HEAD CT WHEN PT IS STABLE.
--- NOTE | 2020-04-22 08:10 | NUR ---
SHEEBA RESHMA BACK IN PLACE FOR AXILLARY AND ORAL TEMPS 92. WILL CONTINUE TO MONITOR PT.
[2020-04-22] MEDS: FOLIC ACID 1 MG TAB PO SCH (10:00)
--- NOTE | 2020-04-22 10:24 | NUR ---
Nutrition Assessment/Consult Notes Please refer to link for full assessment notes. Est Energy needs: 1722-7301 kcals (17-20 kcal/kgBW) Est Protein needs: 89-98 gms/day (1.0-1.1 gm/kgBW) Will continue to monitor and reassess prn. Addendum: 04/22/20 at [address] Amended: Links added.
[2020-04-22] MEDS: THIAMINE HCL 100 MG TAB PO SCH (10:55)
[2020-04-22] MEDS: PANTOPRAZOLE 40 MG/10 ML VIAL INJ IV SCH ×2 (10:55→21:49)
[2020-04-22] MEDS: MULTIPLE VITAMIN ORAL 15 ML Soln PO SCH (10:56)
[2020-04-22] MEDS: FUROSEMIDE 40 MG/4 ML VIAL IV SCH (10:57)
[2020-04-22] MEDS ORDERED: VANCOMYCIN 500 MG in D5W 5% 100 ML IV ONE (12:00)
[2020-04-22] MEDS: LACTULOSE 20Gm/30ML SOLN NG SCH ×3 (12:00→23:54)
--- NOTE | 2020-04-22 13:50 | NUR ---
PT TRANSPORTED TO RADIOLOGY FOR HEAD CT. PT CONNECTED TO PORTABLE VENT WITH RT AT BEDSIDE. PT CONNECTED TO PORTABLE MONITOR. WILL CONTINUE TO MONITOR PT.
--- NOTE | 2020-04-22 13:50 | NUR ---
PT TRANSPORTED ON TRANSPORT VENT TO CT WITH NO INCIDENT REPORTED. CARDIAC MONITORING AT BEDSIDE WITH SPO2 98. PT PLACED BACK ON VENT SETTINGS OF AC: RR 14, VT 500, PEEP 5. WILL CONTINUE TO MONITOR PT.
[2020-04-22] MEDS: fentaNYL Drip 2500mCg/250mlNS 250 ML IV SCH (14:15)
[2020-04-22] MEDS: MIDAZOLAM DRIP 50 mg/50mL 50 ML IV SCH (14:15)
--- NOTE | 2020-04-22 14:47 | NUR ---
RESULTS RECEIVED FROM HEAD CT. DR FLOWERS PAGED TO REPORT NEW FINDINGS.
--- NOTE | 2020-04-22 19:29 | NUR ---
PT CARE REPORT GIVEN TO NOC SHIFT. PT CARE ENDORSED.
--- NOTE | 2020-04-22 19:50 | NUR ---
OPEN NOTES Received report from day shift RN Messi. Patient has been off sedation since 0100hrs according to report. Patient's pupils both sluggishly reactive to light. No cough or gag noted. No movement noted even to stimuli. Intubated on AC mode, FiO2 30%, sats 97%,not in distress. VS stable. on IV Dopamine at 2.5mcg/kg/min fixed rate. Abdomen large and soft. Paracentesis done last 04/20. Jones catheter in placed with yellowish clear urine. Right femoral TLC in placed, dressing CDI. Full assessment done-refer interventions
--- NOTE | 2020-04-22 22:30 | NUR ---
HYGIENE Patient cleaned with CHG wipes. Linens changed. Oral care done. Repositioned.
[2020-04-22 23:43] LABS: Protein, Urine 30.5 mg/dL (0.0-11.9)
[2020-04-23] VITALS (95 sets, daily range): BP systolic 101–157; BP diastolic 53–87
[2020-04-23] MEDS: DOPamine 1600MCG/ML D5W 250 ML IV SCH (02:22)
[2020-04-23 03:17] LABS: Basophils # (auto) 0 10 ^3/uL (0-0.2); Basophils % (auto) 0.4 % (0.0-2.0); Eosinophils # (auto) 0.1 10 ^3/uL (0-0.8); Hemoglobin 7.4 g/dL (13.5-17.5); Lymphocytes # (auto) 0.4 10 ^3/uL (0.4-5.4); Monocytes # (auto) 0.4 10 ^3/uL (0-1.3); Neutrophils # (auto) 1.8 10 ^3/uL (1.6-8.6); White Blood Cell 2.7 10^3/uL (4.4-10.8)
[2020-04-23 03:19] LABS: Eosinophils % (auto) 3.1 % (0.0-7.0); Hematocrit 21.3 % (41.0-53.0); Lymphocytes % (auto) 13.7 % (10.0-50.0); Mean Corpuscular Hemoglobin 34.1 pg (28.0-32.0); Mean Corpuscular Hgb Conc. 34.7 g/dL (32.0-36.0); Mean Corpuscular Volume 98.4 fL (80.0-100.0); Monocytes % (auto) 16.3 % (0.0-12.0); Neutrophils % (auto) 66.5 % (37.0-80.0); Nucleated Red Blood Cells % 0.3 %; Red Blood Cells 2.17 10^6/uL (4.5-5.90); Red Cell Distribution Width 18.5 % (11.8-14.3)
[2020-04-23 03:23] LABS: Platelet Count (auto) 23 10^3/uL (140-450)
[2020-04-23 03:39] LABS: Albumin 2.1 g/dL (3.4-5.0); Potassium 5.5 mmol/L (3.5-5.1)
[2020-04-23 03:45] LABS: BUN/Creatinine Ratio 23.7; Bilirubin, Total 1.1 mg/dL (0.2-1.0); Total Protein 5.1 g/dL (6.4-8.2)
[2020-04-23] MEDS: metroNIDAZOLE 500MG/100ML 100 ML IV SCH ×3 (03:53→19:39)
[2020-04-23] MEDS: ACCU-CHEK COMFORT CURVE STRIP VI SCH ×4 (05:38→23:26)
[2020-04-23] MEDS: LACTULOSE 20Gm/30ML SOLN NG SCH ×4 (05:38→23:00)
[2020-04-23] MEDS: InsuLIN REG 1unit/0.01ml Soln (100units/ml) SC SCH ×4 (05:40→23:28)
[2020-04-23] MEDS: AMPICILLIN SOD 2GM INJ 2 GM in SODIUM CHL 0.9% 100 ML IV SCH (05:44)
--- NOTE | 2020-04-23 05:49 | NUR ---
PAGED HOSPITALIST FOR LAB RESULTS
--- NOTE | 2020-04-23 06:05 | NUR ---
HOSPITALIST CALLED BACK INFORMED INFECTION CONTROL PREVENTIONIST [facility] OF LAB RESULTS TELEPHONE ORDER RECEIVED : REPEAT BMP IN 4HOURS TO CHECK POTASSIUM TREND
[2020-04-23] MEDS: OCTREOTIDE ACETATE 100 MCG/ML VL SUBCUT SCH ×3 (06:34→22:11)
[2020-04-23] MEDS: LEVOTHYROXINE SODIUM 50 MCG TAB PO SCH (06:35)
--- NOTE | 2020-04-23 07:00 | NUR ---
REPORT REPORT GIVEN TO BRIDGET FERRER
[2020-04-23] MEDS: FERROUS SULFATE 300 MG/5 ML ORAL LIQ PO SCH ×3 (08:00→18:00)
--- NOTE | 2020-04-23 08:30 | NUR ---
Dr Kirk at bedside.
--- NOTE | 2020-04-23 08:37 | NUR ---
Hosptalist Dr Hearn paged regarding ABG results.
--- NOTE | 2020-04-23 08:40 | NUR ---
Dr Hearn returned call. ABG results given. New order received. Will follow orders and cont to monitor.
[2020-04-23] MEDS ORDERED: SODIUM BICARBONATE 50ML VIAL 50 ML in SOD CHL 0.45% 1,000 ML IV ONE (08:45)
--- NOTE | 2020-04-23 09:00 | NUR ---
Pt sister, Kathleen, called and asked to visit pt and decide on code status while Dr Hearn inhouse. Per Dr Hearn.
--- NOTE | 2020-04-23 09:38 | NUR ---
Spoke to Dr Hearn via telephone. D/C Sodium Bicarb 1/2 NS. Will follow order.
[2020-04-23] MEDS: FUROSEMIDE 40 MG/4 ML VIAL IV SCH (09:58)
[2020-04-23] MEDS: PANTOPRAZOLE 40 MG/10 ML VIAL INJ IV SCH ×2 (09:58→22:10)
[2020-04-23] MEDS: THIAMINE HCL 100 MG TAB PO SCH (10:08)
[2020-04-23] MEDS: MULTIPLE VITAMIN ORAL 15 ML Soln PO SCH (10:19)
[2020-04-23] MEDS: FOLIC ACID 1 MG TAB PO SCH (10:19)
--- NOTE | 2020-04-23 11:05 | NUR ---
Dr Hearn at bedside. RT at bedside and aware of small amounts of bleeding at the mouth. Mouth guard applied. Will cont to monitor.
--- NOTE | 2020-04-23 11:30 | NUR ---
Pt had continuous amount of loose stool. Pericare provided. Full sheet linen change x3. Rectal tube placed. Stool culture collected. Blood clots noted in stool; Dr Hearn aware of bloody stool and at bedside. Will continue to monitor.
[2020-04-23 12:06] LABS: BUN/Creatinine Ratio 22.8; Calcium 8.1 mg/dL (8.5-10.1); Potassium 5.3 mmol/L (3.5-5.1)
--- NOTE | 2020-04-23 12:55 | NUR ---
Dr Hearn and pt sister, Kathleen, and brother in law at bedside. Dr spoke to family regarding status of pt. No decisions made at this time. Pt sister, Kathleen, stated "I will try to make a decision by this Sunday."
[2020-04-23] MEDS ORDERED: DAPTOmycin 500 MG in SODIUM CHL 0.9% 50 ML IV SCH (13:15)
[2020-04-23] MEDS: SODIUM BICARBONATE 50ML VIAL 50 ML in D5W 5% 1,000 ML IV SCH (13:23)
[2020-04-23] MEDS: MIDAZOLAM DRIP 50 mg/50mL 50 ML IV SCH (14:15)
[2020-04-23] MEDS: fentaNYL Drip 2500mCg/250mlNS 250 ML IV SCH (14:15)
[2020-04-23] MEDS: DAPTOmycin 500 MG in SODIUM CHL 0.9% 50 ML IV SCH (14:49)
--- NOTE | 2020-04-23 15:55 | NUR ---
Paged Dr Hearn regarding small amount of bleeding from mouth. Will cont to monitor.
--- NOTE | 2020-04-23 17:23 | NUR ---
Re-paged Dr Hearn. Awaiting call back. Will cont to monitor pt.
--- NOTE | 2020-04-23 18:00 | NUR ---
No return call back from Dr Hearn. carbonation tester hospitalist paged.
--- NOTE | 2020-04-23 18:09 | NUR ---
Dr Garnett returned call back. Notified of red tinged sputum from throat. New order received. Will follow orders and cont to monitor.
--- NOTE | 2020-04-23 19:00 | NUR ---
Report given to NOC RN in detail. Care endorsed.
--- NOTE | 2020-04-23 19:50 | NUR ---
OPEN NOTES Assumed care of patient. Patient has no sedation. No eye opening noted.Patient's pupils both sluggishly reactive to light. No gag noted but hypoactive cough noted. Lower limbs reacts to stimuli. Intubated on AC mode, FiO2 30%, sats 97%,not in distress. Orally suctioned blood moderate amount. will check hgb. VS stable. on IV Dopamine at 2.5mcg/kg/min fixed rate. SBP 140-150 mmHg Abdomen large and soft. Had diarrhea today and Flexiseal was inserted. Jones catheter in placed with yellowish clear urine. Right femoral TLC in placed, dressing CDI. Full assessment done-refer interventions will continue to monitor PRN
--- NOTE | 2020-04-23 20:00 | NUR ---
TEMP Unable to get oral or axillary temp Rectal probe inserted - Temp 93.6 F rectally Patient covered with Anna hugger will continue to monitor
[2020-04-23 20:28] LABS: Hematocrit 23.8 % (41.0-53.0); Hemoglobin 7.9 g/dL (13.5-17.5)
[2020-04-23] MEDS ORDERED: SODIUM BICARBONATE 8.4% INJ 50ML SYRINGE ONE (23:49)
[2020-04-24] VITALS (68 sets, daily range): BP systolic 108–161; BP diastolic 59–88
--- NOTE | 2020-04-24 00:30 | NUR ---
HYGIENE SPONGE BATH DONE. LINENS CHANGED. APPLIED Z GUARD ON BOTH GROIN AREA AND REPOSITIONED. ORAL CARE DONE
[2020-04-24] MEDS: SODIUM BICARBONATE 50ML VIAL 50 ML in D5W 5% 1,000 ML IV SCH ×2 (02:00→15:32)
[2020-04-24] MEDS: metroNIDAZOLE 500MG/100ML 100 ML IV SCH ×3 (03:37→20:07)
[2020-04-24 05:37] LABS: Basophils # (auto) 0 10 ^3/uL (0-0.2); Eosinophils # (auto) 0.2 10 ^3/uL (0-0.8); Hemoglobin 7.5 g/dL (13.5-17.5); Lymphocytes # (auto) 0.6 10 ^3/uL (0.4-5.4); Monocytes # (auto) 0.7 10 ^3/uL (0-1.3); Neutrophils % (auto) 65.5 % (37.0-80.0); Platelet Count (auto) 38 10^3/uL (140-450); White Blood Cell 4.6 10^3/uL (4.4-10.8)
[2020-04-24] MEDS: ACCU-CHEK COMFORT CURVE STRIP VI SCH ×4 (05:37→23:43)
[2020-04-24] MEDS: LACTULOSE 20Gm/30ML SOLN NG SCH ×4 (05:37→23:43)
[2020-04-24] MEDS: InsuLIN REG 1unit/0.01ml Soln (100units/ml) SC SCH ×4 (05:39→23:46)
[2020-04-24 05:40] LABS: Basophils % (auto) 0.3 % (0.0-2.0); Eosinophils % (auto) 4.6 % (0.0-7.0); Hematocrit 22.1 % (41.0-53.0); Lymphocytes % (auto) 13.8 % (10.0-50.0); Mean Corpuscular Hemoglobin 33.1 pg (28.0-32.0); Mean Corpuscular Volume 97.4 fL (80.0-100.0); Monocytes % (auto) 15.8 % (0.0-12.0); Nucleated Red Blood Cells % 0.1 %; Red Blood Cells 2.27 10^6/uL (4.5-5.90)
[2020-04-24 06:05] LABS: Potassium 4.3 mmol/L (3.5-5.1)
[2020-04-24] MEDS: OCTREOTIDE ACETATE 100 MCG/ML VL SUBCUT SCH ×3 (06:14→22:07)
[2020-04-24 06:15] LABS: BUN/Creatinine Ratio 24.1; Bilirubin, Total 0.9 mg/dL (0.2-1.0); Calcium 7.8 mg/dL (8.5-10.1); Total Protein 4.9 g/dL (6.4-8.2)
[2020-04-24] MEDS: LEVOTHYROXINE SODIUM 50 MCG TAB PO SCH (06:15)
[2020-04-24] MEDS: DOPamine 1600MCG/ML D5W 250 ML IV SCH (06:15)
--- NOTE | 2020-04-24 07:00 | NUR ---
REPORT REPORT GIVEN TO BRIDGET ONOFRE
[2020-04-24] MEDS: FERROUS SULFATE 300 MG/5 ML ORAL LIQ PO SCH ×3 (08:00→18:03)
[2020-04-24] MEDS ORDERED: DAPTOmycin 0 MG in SODIUM CHL 0.9% 50 ML IV SCH (10:00)
[2020-04-24] MEDS: FUROSEMIDE 40 MG/4 ML VIAL IV SCH (10:22)
[2020-04-24] MEDS: THIAMINE HCL 100 MG TAB PO SCH (10:23)
[2020-04-24] MEDS: MULTIPLE VITAMIN ORAL 15 ML Soln PO SCH (10:23)
[2020-04-24] MEDS: FOLIC ACID 1 MG TAB PO SCH (10:23)
[2020-04-24] MEDS: PANTOPRAZOLE 40 MG/10 ML VIAL INJ IV SCH ×2 (10:23→22:06)
--- NOTE | 2020-04-24 14:09 | NUR ---
Nutrition Followup Note Wt 90kg Pt is intubated off sedation and unresponsive per MD note. Pt is NPO with no alternate nutrition ordered. Consider starting the pt on TF or TPN if medically feasible. Est Energy needs: 0655-6119 kcals (17-20 kcal/kgBW) Est Protein needs: 89-98 gms/day (1.0-1.1 gm/kgBW) Will continue to monitor and reassess prn. Labs: Na 146H, BUn 100H, Creat 4.15H, Alb 2.0L, Ca 7.8L, GLUC 185H BM: Pt with 3 BMs 04/24 per Rn note Skin: BS 11 high risk, full details in chief clinical officer car enote PES: 1) Increased nutrient needs r/t pt with no PO intake aeb pt is intubated, NPO 2) Obesity r/t energy intake in excess of energy needs aeb BMI of 30.9 kg/m2 3) Altered nutrition related lab values r/t current/chronic medical condition 3) aeb elev RFTs, elev LFTs, hypocalcemia, hypoalbuminemia Comments Will continue to monitor PO status, skin status, pertinent labs and weight trends. Will f/u in 2-3 days 1) Continue to closely monitor pt NPO status 2) If pt remains NPO for the next 48 hours consider Glucerna 1.2 @ 60 ml/hr goal rate as tolerated if GI is preferred route 3) Gradually advance pt diet to CCHO 60g/Renal Specific 90gProtein, 2gNa,K2,lowphos diet 4) If albumin continues trending down with improved RFTs, consider Prostat 1 pkt BID 5) Continue current plan of care Expected Outcomes/Goals: Pt to receive nutrition support after 48 hours if medically feasible Pt labs to improve
[2020-04-24] MEDS: fentaNYL Drip 2500mCg/250mlNS 250 ML IV SCH (14:15)
[2020-04-24] MEDS: MIDAZOLAM DRIP 50 mg/50mL 50 ML IV SCH (14:15)
--- NOTE | 2020-04-24 17:23 | NUR ---
PATIENT REMAINED UNRESPONSIVE PUPILS 3 SLUGGISH. INTUBATED NOT SEDATED DUE TO MENTAL STATUS SBP ON THE 140'S TO 150'S
--- NOTE | 2020-04-24 20:00 | NUR ---
wound assessment pressure sore noted on sacrum. will take picture for reference. will order wound consult.
[2020-04-25] VITALS (59 sets, daily range): BP systolic 109–165; BP diastolic 69–102
--- NOTE | 2020-04-25 00:51 | NUR ---
Respiratory note: UPON ARRIVAL TO PT BEDSIDE CUFF PRESSURE FOUND TO BE 10 CMH2O. REINFLATED CUFF TO 25 CMH2O.
--- NOTE | 2020-04-25 02:00 | NUR ---
Central Line Dressing Changes Central line dressing change done with a sterile technique. Cleansed with chloraprep scrub/betadine. Bio-patch applied. Occlusive dressing applied.
--- NOTE | 2020-04-25 03:00 | NUR ---
Patient bathe/linen change Patient given complete bath with chlorhexidine wipes. Skin integrity assessed for any changes. Linens changed. Patient repositioned for comfort. rectal tube is leaking.
[2020-04-25] MEDS: metroNIDAZOLE 500MG/100ML 100 ML IV SCH ×3 (03:45→20:00)
[2020-04-25] MEDS: DOPamine 1600MCG/ML D5W 250 ML IV SCH (04:04)
[2020-04-25] MEDS: LACTULOSE 20Gm/30ML SOLN NG SCH ×3 (05:35→18:00)
[2020-04-25] MEDS: SODIUM BICARBONATE 50ML VIAL 50 ML in D5W 5% 1,000 ML IV SCH ×2 (05:35→16:32)
[2020-04-25] MEDS: OCTREOTIDE ACETATE 100 MCG/ML VL SUBCUT SCH ×3 (05:36→22:15)
[2020-04-25] MEDS: ACCU-CHEK COMFORT CURVE STRIP VI SCH ×3 (05:37→18:01)
[2020-04-25] MEDS: InsuLIN REG 1unit/0.01ml Soln (100units/ml) SC SCH ×3 (05:54→18:00)
[2020-04-25] MEDS: LEVOTHYROXINE SODIUM 50 MCG TAB PO SCH (06:16)
[2020-04-25 07:03] LABS: Albumin 1.9 g/dL (3.4-5.0); BUN/Creatinine Ratio 23.4; Calcium 7.2 mg/dL (8.5-10.1); Potassium 3.7 mmol/L (3.5-5.1)
[2020-04-25 07:05] LABS: Bilirubin, Total 0.9 mg/dL (0.2-1.0)
--- NOTE | 2020-04-25 07:52 | NUR ---
INLINE SX DELEON, HME AND SHAHID CHANGED. PT WEARING THE SHAHID GUARD DUE TO PT BITING THE ETT. BRIDGET ONOFRE MADE AWARE.
[2020-04-25] MEDS: FERROUS SULFATE 300 MG/5 ML ORAL LIQ PO SCH ×3 (08:00→18:00)
[2020-04-25] MEDS: FOLIC ACID 1 MG TAB PO SCH (08:59)
[2020-04-25] MEDS: FUROSEMIDE 40 MG/4 ML VIAL IV SCH (08:59)
[2020-04-25] MEDS: PANTOPRAZOLE 40 MG/10 ML VIAL INJ IV SCH ×2 (08:59→22:15)
[2020-04-25] MEDS: MULTIPLE VITAMIN ORAL 15 ML Soln PO SCH (09:00)
[2020-04-25] MEDS: THIAMINE HCL 100 MG TAB PO SCH (09:00)
--- NOTE | 2020-04-25 09:58 | NUR ---
WOUND CARE NOTE: Wound care in to see patient regarding sacral wound that are noted by bedside nurse upon assessment. Bedside nurse took photograph of patient's sacral wound for reference. Patient is 65 years old male with admitting diagnosis of Shock, S/P CPR. 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 Patient is intubated and mechanically ventilated. Patient appears to be in no pain using Jones Pritchett Faces Pain Scale. Skin/wound assessment done with the assistance of patient's nurse, BRIDGET Olsen. Patient's medial sacrum noted with 6x5cm open/evolving DTI (Deep Tissue Injury). Wound is dark maroon/purple, with blood blisters.Jenifer wound is dark red/purple with minimal sanguinous drainage,no odor noted. Per reports, patient brought by paramedics with no pulse, found by family unconscious. Cleansed sacral wound with wound cleanser,patted dry with gauze,applied Thera honey gauze, covered with Opti foam sacral dressing. Patient also noted with generalized edema, scrotal swelling, intact ecchymosis to bilateral arms and Rt lateral chest area. Repositioned patient for comfort facing his Rt side,redistributed pressure points with pillows. Patient tolerated well. BRIDGET Olsen at bedside. RECOMMENDATION: Nursing to continue with Daily/PRN dressing change to sacral wound per MD order, continuation of all other wound care orders MD prescribed, continue with skin/wound plan of care, continue monitoring by wound care while patient is intubated and Oz score is <18. Addendum: 04/25/20 at 1327 by Vesta Williamson RN Amended: Links added.
[2020-04-25] MEDS: fentaNYL Drip 2500mCg/250mlNS 250 ML IV SCH (14:15)
[2020-04-25] MEDS: MIDAZOLAM DRIP 50 mg/50mL 50 ML IV SCH (14:15)
[2020-04-25] MEDS: DAPTOmycin 500 MG in SODIUM CHL 0.9% 50 ML IV SCH (14:30)
--- NOTE | 2020-04-25 20:00 | NUR ---
PATIENT ADMITTED ON 04/19/2020. MD DIAGNOSIS SEPTIC SHOCK, ANOXIC BRAIN INJURY. CPR IN ER . INTUBATED IN ER. FULL CODE. PATIENT HAS NOT BEEN ON SEDATION FOR 4 DAYS AND HAS NOT WOKEN UP. DOES MOVE HIS FACE AND FEET ONLY. PUPILS 4 AND SLUGGISH. LARGE AMOUNT OF ORAL SECRETIONS. ORAL CARE DONE. SUCTIONED THE ETT FOR A SMALL AMOUNT OF BROWN WATERY SECRETIONS. LUNGS COARSE. ABDOMEN ROUND AND SOFT. SMALL BANDAID FROM WHERE HE HAD PREVIOUSLY HAD A PARACENTESIS. FLEXASEAL IN PLACE. BAG WAS FULL OF BROWN LIQUID. NEW BAG HUNG. WRIGHT IN PLACE DRAINING CLEAR YELLOW LIQUID TO DOWN DRAIN BAG (175CC.) SKIN IS VERY DRY. LOTION APPLIED. TEMPERATURE WAS LOW ON DAYSHIFT . SHEEBA HUGGER ON. TEMP 98.9 ON MODERATE HEAT. ONE BLANKET REMOVED AND DECREASED THE TEMPERATURE TO LOW. REPOSITIONED TO BACK. DOPAMINE AT RENAL DOSE IS GENERATING A SYSTOLIC BLOOD PRESSURE OF 159/93. DECREASED THE DOPAMINE TO 1 MCG/KG/MIN. WITHIN ONE HOUR THE SYSTOLIC WAS 117. CALL PLACED TO DR CASIANO. DETAILED MESSAGE LEFT WITH THE REPRODUCTION ORDER PROCESSOR. 2+ GENERALIZED PITTING EDEMA.
--- NOTE | 2020-04-25 21:34 | NUR ---
DR CASIANO RETURNED CALL. ORDER TO DECREASE THE RENAL DOSE DOPAMINE OF 2.5 TO 1.5 MCG/KG /MIN
[2020-04-25] MEDS ORDERED: DOPamine 1600MCG/ML D5W 250 ML IV SCH ×3 (21:45→22:00)
[2020-04-26] VITALS (52 sets, daily range): BP systolic 109–170; BP diastolic 67–98
--- NOTE | 2020-04-26 | NUR ---
SBP HAS IMPROVED SLIGHTLY. TEMPERATURE ON [facility] LOW IS 98.4. PUPILS REMAIN SLUGGISH. SOME FACIAL AND LEG MOVEMENT WHEN WORKING WITH HIM. NO ATTEMPT AT OPENING EYES OR FOLLOWING COMMANDS. ORAL AND ETT SECRETIONS HAVE A TINY AMOUNT OF BLOOD LACED THROUGH THEM. ORAL CARE DONE. ETT SUCTIONED FOR JUST A SMALL AMOUNT OF CLEAR/SLIGHTLY BLOODY SECRETIONS. LUNGS CLEAR. ABDOMEN ROUND AND SOFT. WRIGHT DRAINING AN ADEQUATE AMOUNT OF CLEAR YELLOW LIQUID TO DOWN DRAIN BAG. FLEXASEAL IS DRAINING A SMALL AMOUNT OF BROWN LIQUID.ALL PULSES ARE PALPABLE AND WEAK. SKIN IS DRY. SACRAL WOUND DRESSING IS INTACT. SBP REMAINS A LITTLE HIGH ON THE DECREASED DOPAMINE DRIP OF 1.5 MCG/KG/MIN. SODIUM BICARB DRIP AT 80CC/HR. RIGHT FEMORAL TRIPLE LUMEN CATHETER SITE HAS A TINY AMOUNT OF BLOOD ON THE CIRCULAR DISC. DRESSING IS CLEAN AND DRY.
[2020-04-26] MEDS: ACCU-CHEK COMFORT CURVE STRIP VI SCH ×5 (00:24→23:54)
[2020-04-26] MEDS: InsuLIN REG 1unit/0.01ml Soln (100units/ml) SC SCH ×4 (00:25→17:51)
[2020-04-26] MEDS: LACTULOSE 20Gm/30ML SOLN NG SCH ×5 (00:26→23:54)
--- NOTE | 2020-04-26 02:00 | NUR ---
REPOSITIONED TO BACK. ORAL CARE. ETT SUCTIONED. GENERALIZED PITTING EDEMA PERSISTS. WRIGHT DRAINING CLEAR YELLOW LIQUID TO DOWN DRAIN BAG. SHEEBA HUGGER ON. NO NEW MOVEMENTS. DOES NOT TRY TO OPEN EYES.
[2020-04-26] MEDS: metroNIDAZOLE 500MG/100ML 100 ML IV SCH ×3 (04:00→20:30)
--- NOTE | 2020-04-26 04:00 | NUR ---
CHG BATH AND COMPLETE LINEN CHANGE. NSR WITHOUT ECTOPY. IV SITE SHOWS NO NEW DRNG. SCROTUM IS VERY ENLARGED. VIV AREA REDNESS/FLAKINESS. Z GUARD APPLIED. SHEEBA JUSTICE ON.
--- NOTE | 2020-04-26 06:00 | NUR ---
MEDS GIVEN. CANNISTERS CHANGED. NGT CLAMPED AFTER MED INSTILLATION. NSR WITHOUT ECTOPY
[2020-04-26 06:27] LABS: Albumin 1.9 g/dL (3.4-5.0); Calcium 7.6 mg/dL (8.5-10.1); Potassium 3.4 mmol/L (3.5-5.1)
[2020-04-26] MEDS: OCTREOTIDE ACETATE 100 MCG/ML VL SUBCUT SCH ×3 (06:29→22:04)
[2020-04-26 06:32] LABS: Bilirubin, Total 0.9 mg/dL (0.2-1.0); Total Protein 5.1 g/dL (6.4-8.2)
[2020-04-26] MEDS: LEVOTHYROXINE SODIUM 50 MCG TAB PO SCH (07:00)
[2020-04-26] MEDS: SODIUM BICARBONATE 50ML VIAL 50 ML in D5W 5% 1,000 ML IV SCH ×2 (07:48→20:00)
--- NOTE | 2020-04-26 07:49 | NUR ---
DR MORAES NOTIFIED THAT THE SBP WAS 166/91. ORDER RECEIVED TO STOP THE DOPAMINE.
[2020-04-26] MEDS: FERROUS SULFATE 300 MG/5 ML ORAL LIQ PO SCH ×3 (09:57→17:46)
[2020-04-26] MEDS: FUROSEMIDE 40 MG/4 ML VIAL IV SCH (09:58)
[2020-04-26] MEDS: FOLIC ACID 1 MG TAB PO SCH (09:58)
[2020-04-26] MEDS: PANTOPRAZOLE 40 MG/10 ML VIAL INJ IV SCH ×2 (09:58→22:03)
[2020-04-26] MEDS: THIAMINE HCL 100 MG TAB PO SCH (09:58)
[2020-04-26] MEDS: MULTIPLE VITAMIN ORAL 15 ML Soln PO SCH (10:07)
--- NOTE | 2020-04-26 10:30 | NUR ---
MD Dr. Hearn at bedside updated on patient condition with no new orders. Will continue to monitor patient closely.
--- NOTE | 2020-04-26 11:00 | NUR ---
MD Dr. Caputo at bedside updated on patient condition with no new orders. Will continue to monitor patient closely.
--- NOTE | 2020-04-26 12:05 | NUR ---
FAMILY Called Sister Kathleen no answer will attempt later.
--- NOTE | 2020-04-26 12:11 | NUR ---
Nutrition Followup Note Wt 90.1kg Pt continues to be intubated and off sedation, pt is unresponsive with no gag reflex per MD note. Pt discussed pt with sister and family to make decision on plan of care for pt. Consider nutrition intervention per family wishes. Est Energy needs: 4363-2192 kcals (17-20 kcal/kgBW) Est Protein needs: 89-98 gms/day (1.0-1.1 gm/kgBW) Will continue to monitor and reassess prn. Labs: Na 149H, BUN 90H, Creat 3.92H, Alb 1.9L, Ca 7.6L, GLUC 260H BM: Pt with 3 BMs 04/24 per Rn note Skin: BS 14 mod risk, full details in technical solutions consultant car enote PES: 1) Increased nutrient needs r/t pt with no PO intake aeb pt is intubated, NPO 2) Obesity r/t energy intake in excess of energy needs aeb BMI of 30.9 kg/m2 3) Altered nutrition related lab values r/t current/chronic medical condition 3) aeb elev RFTs, elev LFTs, hypocalcemia, hypoalbuminemia Comments Will continue to monitor PO status, skin status, pertinent labs and weight trends. Will f/u in 2-3 days 1) Continue to closely monitor pt NPO status 2) If pt remains NPO for the next 48 hours consider Glucerna 1.2 @ 60 ml/hr goal rate as tolerated if GI is preferred route 3) Gradually advance pt diet to CCHO 60g/Renal Specific 90gProtein, 2gNa,K2,lowphos diet 4) If albumin continues trending down with improved RFTs, consider Prostat 1 pkt BID 5) Continue current plan of care Expected Outcomes/Goals: Pt to receive nutrition support after 48 hours if medically feasible Pt labs to improve
--- NOTE | 2020-04-26 12:45 | NUR ---
MD Dr. Lucero at bedside updated on patient condition with no new orders. Will continue to monitor patient closely.
--- NOTE | 2020-04-26 13:45 | NUR ---
MD Dr. Hearn called and spoke to Tracey GILL regarding that she spoke to patients sister Kathleen about terminal weaning and Kathleen decided that a terminal wean would happen possibly on Sunday after speaking to more family.
[2020-04-26] MEDS: fentaNYL Drip 2500mCg/250mlNS 250 ML IV SCH (14:15)
[2020-04-26] MEDS: MIDAZOLAM DRIP 50 mg/50mL 50 ML IV SCH (14:15)
--- NOTE | 2020-04-26 17:30 | NUR ---
ELIMINATION Patient leaking from rectal tube, taina care provided and partial linen change done with the assistance of Vickie GILL. Patient tolerated well. Will continue to monitor patient closely.
--- NOTE | 2020-04-26 22:36 | NUR ---
Mild drainage noted from Flexiseal. Pt skin cleansed and patted dry. Barrier cream applied. Partial linen change at this time. Pt tolerated interventions well with nad noted.
[2020-04-27] VITALS (30 sets, daily range): BP systolic 108–173; BP diastolic 67–90
[2020-04-27] MEDS: InsuLIN REG 1unit/0.01ml Soln (100units/ml) SC SCH ×5 (00:09→23:51)
[2020-04-27] MEDS: metroNIDAZOLE 500MG/100ML 100 ML IV SCH ×3 (04:00→19:58)
[2020-04-27 04:13] LABS: Basophils # (auto) 0 10 ^3/uL (0-0.2); Eosinophils # (auto) 0.2 10 ^3/uL (0-0.8); Lymphocytes # (auto) 0.5 10 ^3/uL (0.4-5.4); Lymphocytes % (auto) 12.3 % (10.0-50.0); Monocytes # (auto) 0.4 10 ^3/uL (0-1.3); Monocytes % (auto) 10.5 % (0.0-12.0); Neutrophils # (auto) 2.7 10 ^3/uL (1.6-8.6); Neutrophils % (auto) 72.2 % (37.0-80.0); White Blood Cell 3.7 10^3/uL (4.4-10.8)
[2020-04-27 04:16] LABS: Basophils % (auto) 0.1 % (0.0-2.0); Eosinophils % (auto) 4.9 % (0.0-7.0); Hematocrit 22.1 % (41.0-53.0); Hemoglobin 7.5 g/dL (13.5-17.5); Mean Corpuscular Hemoglobin 33.1 pg (28.0-32.0); Mean Corpuscular Hgb Conc. 33.9 g/dL (32.0-36.0); Mean Corpuscular Volume 97.9 fL (80.0-100.0); Nucleated Red Blood Cells % 0.1 %; Platelet Count (auto) 29 10^3/uL (140-450); Red Blood Cells 2.26 10^6/uL (4.5-5.90); Red Cell Distribution Width 18.3 % (11.8-14.3)
[2020-04-27 04:31] LABS: Albumin 1.9 g/dL (3.4-5.0); Calcium 7.6 mg/dL (8.5-10.1); Potassium 3.6 mmol/L (3.5-5.1)
[2020-04-27 04:34] LABS: BUN/Creatinine Ratio 25.4; Bilirubin, Total 0.9 mg/dL (0.2-1.0); Total Protein 4.8 g/dL (6.4-8.2)
[2020-04-27] MEDS: LACTULOSE 20Gm/30ML SOLN NG SCH ×3 (06:37→18:26)
[2020-04-27] MEDS: OCTREOTIDE ACETATE 100 MCG/ML VL SUBCUT SCH ×3 (06:38→21:32)
[2020-04-27] MEDS: ACCU-CHEK COMFORT CURVE STRIP VI SCH ×4 (06:38→23:51)
[2020-04-27] MEDS: LEVOTHYROXINE SODIUM 50 MCG TAB PO SCH (07:00)
--- NOTE | 2020-04-27 07:15 | NUR ---
Care endorsed to Oanh GILL at this time. All questions answered.
[2020-04-27] MEDS: SODIUM BICARBONATE 50ML VIAL 50 ML in D5W 5% 1,000 ML IV SCH (07:56)
[2020-04-27] MEDS: FERROUS SULFATE 300 MG/5 ML ORAL LIQ PO SCH ×3 (07:57→18:26)
--- NOTE | 2020-04-27 09:15 | NUR ---
MD Dr. Lucero at bedside updated on patient condition with no new orders. Will continue to monitor patient closely.
[2020-04-27] MEDS: THIAMINE HCL 100 MG TAB PO SCH (09:29)
[2020-04-27] MEDS: FUROSEMIDE 40 MG/4 ML VIAL IV SCH (09:29)
[2020-04-27] MEDS: PANTOPRAZOLE 40 MG/10 ML VIAL INJ IV SCH ×2 (09:29→21:31)
[2020-04-27] MEDS: FOLIC ACID 1 MG TAB PO SCH (09:29)
[2020-04-27] MEDS: MULTIPLE VITAMIN ORAL 15 ML Soln PO SCH (09:30)
--- NOTE | 2020-04-27 10:00 | NUR ---
MD Dr. Hearn at bedside updated on patient condition with new orders received, this RN to input into system. Will continue to monitor patient closely.
[2020-04-27] MEDS ORDERED: hydrALAZINE HCL 20 MG/ML VL IV PRN (10:15)
--- NOTE | 2020-04-27 11:44 | NUR ---
BLEEDING Upon arrival to patients bedside to perform oral care and repositioning patient found patient bleeding from mouth. Large amount of blood found on patient. Unknown of source. Will notify MD. Cleaned patient up and repositioned patient with the assistance of Svitlana GILL.
--- NOTE | 2020-04-27 11:50 | NUR ---
Paged Dr. Hearn to notify of bleeding in mouth.
--- NOTE | 2020-04-27 11:57 | NUR ---
MD Dr. Hearn called back an aware of bleeding with no new orders, other than to monitor hemoglobin.
--- NOTE | 2020-04-27 12:14 | NUR ---
ORALLY SUCTIONED MODERATE DAVID BLOOD FROM PT MOUTH. PT ALSO HAS MODERATE AMOUNT OF DAVID BLOOD FROM ETT. PT APPEARS TO BE CLAMPING MOUTH. PT HAS BITE BLOCK ANCHOR FAST, ALSO INSERTED A BITE BLOCK TO PREVENT TONGUE BITING.
--- NOTE | 2020-04-27 13:56 | NUR ---
assumed care of pt pt remains stable, resting with eyes closed, and no s/s of distress or discomfort. cont to monitor.
[2020-04-27] MEDS: fentaNYL Drip 2500mCg/250mlNS 250 ML IV SCH (14:15)
[2020-04-27] MEDS: MIDAZOLAM DRIP 50 mg/50mL 50 ML IV SCH (14:15)
--- NOTE | 2020-04-27 14:38 | NUR ---
No changes at this time. Report given to PCN.
--- NOTE | 2020-04-27 15:00 | NUR ---
COMFORT Complete linen change done with the assistance of Svitlana GILL. Patient tolerated well.
[2020-04-27] MEDS: DAPTOmycin 500 MG in SODIUM CHL 0.9% 50 ML IV SCH (15:31)
[2020-04-27] MEDS: D5W 5% 1,000 ML IV SCH (21:29)
--- NOTE | 2020-04-27 21:29 | NUR ---
Patient bathe/linen change Patient given complete bath. Skin integrity assessed for any changes. Linens changed. Patient repositioned for comfort.
--- NOTE | 2020-04-27 21:45 | NUR ---
PT TRANSFERRED TO ROOM 280-B. NO DISTRESS NOTED. VSS.
[2020-04-28] VITALS (35 sets, daily range): BP systolic 106–161; BP diastolic 63–90
[2020-04-28] MEDS: LACTULOSE 20Gm/30ML SOLN NG SCH ×4 (00:05→17:32)
[2020-04-28] MEDS: metroNIDAZOLE 500MG/100ML 100 ML IV SCH ×3 (03:54→20:01)
[2020-04-28] MEDS: OCTREOTIDE ACETATE 100 MCG/ML VL SUBCUT SCH ×3 (05:43→22:00)
[2020-04-28] MEDS: ACCU-CHEK COMFORT CURVE STRIP VI SCH ×3 (05:57→17:32)
[2020-04-28] MEDS: InsuLIN REG 1unit/0.01ml Soln (100units/ml) SC SCH ×3 (05:59→17:49)
[2020-04-28] MEDS: LEVOTHYROXINE SODIUM 50 MCG TAB PO SCH (06:31)
[2020-04-28 06:38] LABS: Basophils # (auto) 0 10 ^3/uL (0-0.2); Basophils % (auto) 0.2 % (0.0-2.0); Eosinophils # (auto) 0.2 10 ^3/uL (0-0.8); Lymphocytes # (auto) 0.5 10 ^3/uL (0.4-5.4); Monocytes # (auto) 0.4 10 ^3/uL (0-1.3); Platelet Count (auto) 43 10^3/uL (140-450)
[2020-04-28 06:40] LABS: Eosinophils % (auto) 4.9 % (0.0-7.0); Hemoglobin 7.3 g/dL (13.5-17.5); Lymphocytes % (auto) 12.9 % (10.0-50.0); Mean Corpuscular Hemoglobin 32.8 pg (28.0-32.0); Mean Corpuscular Hgb Conc. 33.2 g/dL (32.0-36.0); Mean Corpuscular Volume 98.9 fL (80.0-100.0); Monocytes % (auto) 9.8 % (0.0-12.0); Neutrophils % (auto) 72.2 % (37.0-80.0); Red Blood Cells 2.23 10^6/uL (4.5-5.90); Red Cell Distribution Width 19.3 % (11.8-14.3); White Blood Cell 4.1 10^3/uL (4.4-10.8)
[2020-04-28 06:51] LABS: Calcium 7.4 mg/dL (8.5-10.1); Potassium 3.2 mmol/L (3.5-5.1)
[2020-04-28 06:55] LABS: BUN/Creatinine Ratio 24.5
[2020-04-28] MEDS: D5W 5% 1,000 ML IV SCH ×2 (07:18→15:34)
--- NOTE | 2020-04-28 08:00 | NUR ---
OPEN RECEIVED REPORT FROM LYN RNDUANE. ASSUMED CARE OF ICU PATIENT, FULL CODE STATUS AT THIS TIME. PATIENT HAS BEEN OFF SEDATION, YET STILL REMAINS UNRESPONSIVE TO STIMULI. UPPER EXT. FLACCID AND LOWER EXT. ARE BOTH RIDGED. PATIENT REMAINS ON VENT. #8.0 ETT, 24 CM AT LIP. PC 14, PRESSURE 18, 30%FIO2, PEEP+5. NGT TO LEFT WHALEN, CLAMPED, PLACEMENT VERIFIED. WRIGHT TO GRAVITY. RECTAL TUBE IN PLACE. BEAR HUGGER BLANKET ON PATIENT, WITH LOWEST HEAT SETTING. CURRENT TEMP 98.1 ORALLY. RIGHT FEMORAL TLC WITH D5W AT 100 ML/HR. SACRAL PRESSURE ULCER WITH OPTIFOAM DRESSING OVER SITE AT THIS TIME. WILL CONTINUE TO TURN PATIENT Q2HRS AND PRN. OFF LOADING PRESSURE AREAS WITH PILLOWS. CONTINUE CARE. Addendum: 04/28/20 at 0840 by Mary Burns RN BOILER/CHILLER TECHNICIAN BED #2
[2020-04-28] MEDS: FERROUS SULFATE 300 MG/5 ML ORAL LIQ PO SCH ×3 (08:32→17:32)
[2020-04-28] MEDS: PANTOPRAZOLE 40 MG/10 ML VIAL INJ IV SCH ×2 (08:32→22:15)
[2020-04-28] MEDS: FUROSEMIDE 40 MG/4 ML VIAL IV SCH (08:32)
[2020-04-28] MEDS: MULTIPLE VITAMIN ORAL 15 ML Soln PO SCH (08:40)
[2020-04-28] MEDS: FOLIC ACID 1 MG TAB PO SCH (08:40)
[2020-04-28] MEDS: THIAMINE HCL 100 MG TAB PO SCH (08:40)
--- NOTE | 2020-04-28 09:12 | NUR ---
DR. CHAMORRO AT BEDSIDE: UPDATE MD UPDATED ON PT'S CURRENT STATUS, LABS AND POC FOR TODAY. NO NEW ORDERS RECEIVED. NO NEW BLEEDING NOTED. WILL CONTINUE WITH CURRENT TX PLAN. CONTINUE CARE.
--- NOTE | 2020-04-28 11:44 | NUR ---
DNR STATUS AT THIS TIME TALKED WITH FAMILY. PASSWORD VERIFIED. PT'S FAMILY CHANGED PATIENT TO DNR STATUS, BUT STILL PLANNING FOR TERMINAL WEAN FOR THIS COMING SUNDAY. DR. ESCOBAR NOTIFIED. X2 FAMILY MEMBERS OKAYED TO VISIT PATIENT TOMORROW AROUND 1130. PERMISSION GRANTED BY BOARDING HOUSE MANAGERJANN. WILL CONTINUE WITH POC.
[2020-04-28] MEDS: fentaNYL Drip 2500mCg/250mlNS 250 ML IV SCH (14:15)
[2020-04-28] MEDS: MIDAZOLAM DRIP 50 mg/50mL 50 ML IV SCH (14:15)
--- NOTE | 2020-04-28 14:19 | NUR ---
Nutrition Followup Note Wt 86.0kg Pt continues to be intubated and off sedation, pt is unresponsive with no gag reflex per MD note. Pt remains NPO with no diet order. Refer to nutrition recommendations noted below under Comments. Est Energy needs: 1500-7352 kcals (17-20 kcal/kgBW) Est Protein needs: 89-98 gms/day (1.0-1.1 gm/kgBW) Will continue to monitor and reassess prn. Labs: BUN 85H, Creat 3.47H, Alb 1.9L, Ca 7.4L, GLUC 244H BM: Pt with 1 BM 04/28 per RN note Skin: BS 8 high risk, full details in rn progressive care unit note PES: 1) Increased nutrient needs r/t pt with no PO intake aeb pt is intubated, NPO 2) Obesity r/t energy intake in excess of energy needs aeb BMI of 30.9 kg/m2 3) Altered nutrition related lab values r/t current/chronic medical condition 3) aeb elev RFTs, elev LFTs, hypocalcemia, hypoalbuminemia Comments Will continue to monitor PO status, skin status, pertinent labs and weight trends. Will f/u in 2-3 days 1) Continue to closely monitor pt NPO status 2) If pt remains NPO for the next 48 hours consider Glucerna 1.2 @ 60 ml/hr goal rate as tolerated if GI is preferred route 3) Gradually advance pt diet to CCHO 60g/Renal Specific 90gProtein, 2gNa,K2,lowphos diet 4) If albumin continues trending down with improved RFTs, consider Prostat 1 pkt BID 5) Continue current plan of care
[2020-04-29] VITALS (29 sets, daily range): BP systolic 107–179; BP diastolic 61–88
[2020-04-29] MEDS: LACTULOSE 20Gm/30ML SOLN NG SCH ×4 (00:16→18:00)
[2020-04-29] MEDS: ACCU-CHEK COMFORT CURVE STRIP VI SCH ×4 (00:31→18:38)
[2020-04-29] MEDS: InsuLIN REG 1unit/0.01ml Soln (100units/ml) SC SCH ×4 (00:37→18:38)
[2020-04-29] MEDS: D5W 5% 1,000 ML IV SCH ×3 (02:12→22:00)
--- NOTE | 2020-04-29 03:30 | NUR ---
Patient bathe/linen change Patient given complete bath. Skin integrity assessed for any changes. Linens changed. Patient repositioned for comfort.
[2020-04-29] MEDS: metroNIDAZOLE 500MG/100ML 100 ML IV SCH ×3 (04:04→20:00)
[2020-04-29 04:46] LABS: Basophils # (auto) 0 10 ^3/uL (0-0.2); Eosinophils # (auto) 0.3 10 ^3/uL (0-0.8); Hematocrit 21.7 % (41.0-53.0); Hemoglobin 7.3 g/dL (13.5-17.5); Lymphocytes # (auto) 0.5 10 ^3/uL (0.4-5.4); Mean Corpuscular Hgb Conc. 33.7 g/dL (32.0-36.0); Red Blood Cells 2.19 10^6/uL (4.5-5.90)
[2020-04-29 04:53] LABS: Basophils % (auto) 0.3 % (0.0-2.0); Eosinophils % (auto) 5.9 % (0.0-7.0); Lymphocytes % (auto) 12.3 % (10.0-50.0); Mean Corpuscular Hemoglobin 33.3 pg (28.0-32.0); Monocytes # (auto) 0.3 10 ^3/uL (0-1.3); Monocytes % (auto) 7.8 % (0.0-12.0); Neutrophils # (auto) 3.1 10 ^3/uL (1.6-8.6); Neutrophils % (auto) 73.7 % (37.0-80.0); Platelet Count (auto) 55 10^3/uL (140-450); Red Cell Distribution Width 18.7 % (11.8-14.3); White Blood Cell 4.3 10^3/uL (4.4-10.8)
[2020-04-29 05:05] LABS: Potassium 3.2 mmol/L (3.5-5.1)
[2020-04-29 05:15] LABS: Calcium 7.5 mg/dL (8.5-10.1)
[2020-04-29] MEDS: OCTREOTIDE ACETATE 100 MCG/ML VL SUBCUT SCH ×3 (05:46→21:09)
[2020-04-29] MEDS: LEVOTHYROXINE SODIUM 50 MCG TAB PO SCH (06:19)
--- NOTE | 2020-04-29 09:00 | NUR ---
Dr Kirk visits and examines patient - no new orders received.
[2020-04-29] MEDS: FERROUS SULFATE 300 MG/5 ML ORAL LIQ PO SCH ×3 (09:41→19:00)
--- NOTE | 2020-04-29 10:04 | NUR ---
Patient's brother in law Paulino phones - states that patient's sister Karuna from [facility] and now has decided that she doesn't want to visits today at 1130. Paulino informed flex o writer operator that he would come in tomorrow for terminal wean and will let me know a time later today, states he will be present when patient is terminally weaned from ventilator. Department Specialist asked Paulino about needing assistance with available mortuaries - states they are in the process of makng arrangements with [facility].
--- NOTE | 2020-04-29 10:20 | NUR ---
Dr Hearn visits -no new orders received.
[2020-04-29] MEDS: PANTOPRAZOLE 40 MG/10 ML VIAL INJ IV SCH ×2 (10:55→21:09)
[2020-04-29] MEDS: FOLIC ACID 1 MG TAB PO SCH (10:55)
[2020-04-29] MEDS: THIAMINE HCL 100 MG TAB PO SCH (10:55)
[2020-04-29] MEDS: FUROSEMIDE 40 MG/4 ML VIAL IV SCH (10:56)
[2020-04-29] MEDS: MULTIPLE VITAMIN ORAL 15 ML Soln PO SCH (10:57)
--- NOTE | 2020-04-29 13:15 | NUR ---
assumed care for lunch coverage. pt in bed on vent on monitor. NAD noted.
--- NOTE | 2020-04-29 13:42 | NUR ---
oral care provided. pt had small blood clots on the swab.
--- NOTE | 2020-04-29 13:52 | NUR ---
report to PCN. nad noted. no changes.
[2020-04-29] MEDS: MIDAZOLAM DRIP 50 mg/50mL 50 ML IV SCH (14:15)
[2020-04-29] MEDS: fentaNYL Drip 2500mCg/250mlNS 250 ML IV SCH (14:15)
[2020-04-29] MEDS: DAPTOmycin 500 MG in SODIUM CHL 0.9% 50 ML IV SCH (16:30)
--- NOTE | 2020-04-29 16:30 | NUR ---
Patient's brother in law Paulino phones - wishes to visits at 1000 12/ for terminal wean - RT and charge nurse made aware.
--- NOTE | 2020-04-29 22:14 | NUR ---
Respiratory note: RECEIVED PT ON V60 RENTAL RPX 4481. V60 CONNECTED TO RED OUTLET AND O2 SOURCE ALARMS ARE SET AND AUDIBLE. AMBU BAG AND MASK AT BEDSIDE. ETT SECURED VIA HOLISTER. BS ARE FINE COURSE SXD VIA ETT FOR MODERATE AMOUNT OF THICK JAIN/BLOOD TINGE. WILL CONTINUE TO MONITOR.
[2020-04-30] VITALS (23 sets, daily range): BP systolic 10–148; BP diastolic 54–75
[2020-04-30] MEDS: metroNIDAZOLE 500MG/100ML 100 ML IV SCH (03:38)
[2020-04-30] MEDS: OCTREOTIDE ACETATE 100 MCG/ML VL SUBCUT SCH (06:14)
[2020-04-30] MEDS: LEVOTHYROXINE SODIUM 50 MCG TAB PO SCH (06:14)
[2020-04-30] MEDS: LACTULOSE 20Gm/30ML SOLN NG SCH ×2 (06:14)
[2020-04-30] MEDS: ACCU-CHEK COMFORT CURVE STRIP VI SCH ×2 (06:16)
[2020-04-30] MEDS: InsuLIN REG 1unit/0.01ml Soln (100units/ml) SC SCH ×2 (06:24)
[2020-04-30] MEDS: FERROUS SULFATE 300 MG/5 ML ORAL LIQ PO SCH (08:26)
[2020-04-30] MEDS: D5W 5% 1,000 ML IV SCH (08:26)
--- NOTE | 2020-04-30 09:45 | NUR ---
CONSENT Consent obtained from patients family to terminal wean patient and called Dr. Hearn to notify of decision to terminal wean this AM. Consent signed by this RN and Zander GILL. New orders received. Will carry out orders.
--- NOTE | 2020-04-30 10:10 | NUR ---
COMPASSION EXTUBATION RT Edith at bedside to extubate. Patient family at bedside. Will continue to monitor patient.
--- NOTE | 2020-04-30 10:10 | NUR ---
PT TERMINALLY EXTUBATED. FAMILY AT BEDSIDE.
--- NOTE | 2020-04-30 10:20 | NUR ---
BED ASSIGNMENT Received phone call from poker supervisor Savanna with bed assignment to med/surg room 289B with BRIDGET Barrios.
--- NOTE | 2020-04-30 10:30 | NUR ---
BED ASSIGNMENT Received new bed assignment of 270B with
--- NOTE | 2020-04-30 10:35 | NUR ---
REPORT Report given to Sophie GILL, who will continue plan of care.
--- NOTE | 2020-04-30 10:45 | NUR ---
TRANSFERRED Transferred patient to room 270b with the assistance of zulma Escalante. law secretary aware of patient arrival and will notify Nurse.
--- NOTE | 2020-04-30 11:39 | NUR ---
Patient arrived on unit. No responsive but breathing is normal, lung sounds diminished and crackles noted throughout lung bases. Shows no signs of discomfort or anxiety. Safety co measures in place with call light, bed side table nearby. Patient has no further needs.
[2020-04-30] MEDS: MORPHINE SULF INJ 2 MG/ML SYRINGE 1ML IV PRN (12:07)
--- NOTE | 2020-04-30 12:21 | NUR ---
Patient showed some discomfort per family. Administered Morphine as ordered. Breathing slow and no further needs.
--- NOTE | 2020-04-30 15:53 | NUR ---
Nutrition Followup Note Wt 86.0 kg Pt was terminally extubated today, comfort measures only. Est Energy needs: 9209-5991 kcals (17-20 kcal/kgBW) Est Protein needs: 89-98 gms/day (1.0-1.1 gm/kgBW) Will continue to monitor and reassess prn. Labs: BUN 878H, Creat 3.39H, Alb 1.9L, Ca 7.5L, GLUC 244H BM: Pt with 1 BM today per RN note Skin: BS 8 high risk, full details in healthcare account manager note PES: 1) Increased nutrient needs r/t pt with no PO intake aeb pt is intubated, NPO 2) Obesity r/t energy intake in excess of energy needs aeb BMI of 30.9 kg/m2 3) Altered nutrition related lab values r/t current/chronic medical condition 3) aeb elev RFTs, elev LFTs, hypocalcemia, hypoalbuminemia Comments Will continue to monitor PO status, skin status, pertinent labs and weight trends. Will f/u in 2-3 days 1) Continue to closely monitor pt NPO status 2) If pt remains NPO for the next 48 hours consider Glucerna 1.2 @ 60 ml/hr goal rate as tolerated if GI is preferred route 3) Gradually advance pt diet to CCHO 60g/Renal Specific 90gProtein, 2gNa,K2,lowphos diet 4) If albumin continues trending down with improved RFTs, consider Prostat 1 pkt BID 5) Continue current plan of care
--- NOTE | 2020-04-30 19:30 | NUR ---
Received report from Brock GILL. Patient is a DNR, on comfort measures only. Patient is resting in bed on room air, lebron and rectal tube are in place and hung below patient. HOB is greater than 30 degrees. Will monitor and round frequently.
--- NOTE | 2020-04-30 19:50 | NUR ---
Placed patient on tele monitoring, tele #[id number]. HR is NSR at 65bpm.
--- NOTE | 2020-04-30 20:26 | NUR ---
Patient's sister called, password provided. She was updated on current status, all questions answered. Instructed to call Paulino if any changed happen during the night.
[2020-05-01 05:00] VITALS: BP 130/72
--- NOTE | 2020-05-01 07:20 | NUR ---
Received report from night nurse Patient is a DNR, on comfort measures only. Patient is resting in bed on room air, lebron and rectal tube are in place and hung below patient. HOB is greater than 30 degrees. Will monitor and round frequently.
[2020-05-01 09:00] VITALS: BP 119/70
[2020-05-01] MEDS: MORPHINE SULF INJ 2 MG/ML SYRINGE 1ML IV PRN ×5 (10:27→21:58)
[2020-05-01] MEDS: LORazepam 2MG/ML-1ML VIAL IV PRN ×3 (10:27→21:58)
--- NOTE | 2020-05-01 11:00 | NUR ---
pt. family at bedside.
--- NOTE | 2020-05-01 12:30 | NUR ---
FAMILY REQUESTING PAIN MEDS FOR PT. MORPHINE AND ATIVAN CRM MARKETING ANALYST PER ORDERS.
[2020-05-01 13:00] VITALS: BP 122/71
--- NOTE | 2020-05-01 14:30 | NUR ---
PT.'S FAMILY REQUESTED PAIN MEDICATION GIVEN, PER ORDERS.
--- NOTE | 2020-05-01 16:30 | NUR ---
PT.'S FAMILY REQUESTED PAIN MEDICATION GIVEN, PER ORDERS.
[2020-05-01 17:00] VITALS: BP 126/70
--- NOTE | 2020-05-01 18:30 | NUR ---
PT.'S FAMILY REQUESTED PAIN MEDICATION GIVEN, PER ORDERS.
--- NOTE | 2020-05-01 19:30 | NUR ---
Opening Shift Note Assumed care of patient. Patient is on comfort measures. He is on 2L NC. Bed locked and in lowest position. Will continue to monitor for changes Q1hr and PRN.
[2020-05-01 22:00] VITALS: BP 113/54
[2020-05-02] MEDS: LORazepam 2MG/ML-1ML VIAL IV PRN ×6 (01:09→16:49)
[2020-05-02] MEDS: MORPHINE SULF INJ 2 MG/ML SYRINGE 1ML IV PRN ×6 (01:09→16:49)
[2020-05-02 05:34] VITALS: BP 98/61
--- NOTE | 2020-05-02 07:30 | NUR ---
Opening Shift Note Assumed care of patient. Patient is on comfort measures only. He is on 2L NC. Bed locked and in lowest position. Will continue to monitor for changes Q1hr and PRN.
[2020-05-02 09:00] VITALS: BP 102/56
[2020-05-02 12:55] VITALS: BP 103/52
--- NOTE | 2020-05-02 15:58 | NUR ---
Nutrition Followup Note Wt 85.0 kg Pt was terminally extubated, comfort measures only are being provided. Est Energy needs: 7265-4241 kcals (17-20 kcal/kgBW) Est Protein needs: 89-98 gms/day (1.0-1.1 gm/kgBW) Will continue to monitor and reassess prn. Labs: Ca 7.5L, GLUC 244H BM: Pt with 1 BM today per RN note Skin: BS 9 high risk, full details in post acute care nurse practitioner note PES: 1) Increased nutrient needs r/t pt with no PO intake aeb pt is intubated, NPO 2) Obesity r/t energy intake in excess of energy needs aeb BMI of 30.9 kg/m2 3) Altered nutrition related lab values r/t current/chronic medical condition 3) aeb elev RFTs, elev LFTs, hypocalcemia, hypoalbuminemia Comments Will continue to monitor PO status, skin status, pertinent labs and weight trends. Will f/u in 2-3 days 1) Continue to closely monitor pt NPO status 2) If pt remains NPO for the next 48 hours consider Glucerna 1.2 @ 60 ml/hr goal rate as tolerated if GI is preferred route 3) Gradually advance pt diet to CCHO 60g/Renal Specific 90gProtein, 2gNa,K2,lowphos diet 4) If albumin continues trending down with improved RFTs, consider Prostat 1 pkt BID 5) Continue current plan of care
[2020-05-02 17:00] VITALS: BP 123/61
[2020-05-02 22:00] VITALS: BP 94/52
[2020-05-03] MEDS: MORPHINE SULF INJ 2 MG/ML SYRINGE 1ML IV PRN (01:06)
[2020-05-03] MEDS: LORazepam 2MG/ML-1ML VIAL IV PRN (01:06)
[2020-05-03 05:43] VITALS: BP 96/47
--- NOTE | 2020-05-03 12:18 | NUR ---
Updated visiting family members of patient's status. Provided education on request regarding appropriate use of IV morphine as prescribed. No s/s of pain on patient assessments.
--- NOTE | 2020-05-03 19:45 | NUR ---
Opening Shift Note Assumed care of patient, unresponsive. No symptoms of pain. Turned to his side and every 2 hours, suctioned oral secretions as needed. Bed in lowest and locked position, siderails up x3, bed alarm on, will continue to monitor for changes Q1hr and PRN.
[2020-05-03 22:00] VITALS: BP 114/53
--- NOTE | 2020-05-03 22:05 | NUR ---
Suctioned oral secretions at this time
--- NOTE | 2020-05-03 22:55 | NUR ---
Updated family member of patient's status after verifying password
[2020-05-04 05:00] VITALS: BP 114/65
--- NOTE | 2020-05-04 06:39 | NUR ---
Morning care done, turned patient to his side, dressing to sacrum changed, patient tolerated well
--- NOTE | 2020-05-04 12:16 | NUR ---
Updated family member of patient's status after verifying password. Provided education on request regarding appropriate use of IV morphine as prescribed. No s/s of pain on patient assessments. Addendum: 05/04/20 at 1218 by BRENDA MAYORGA RN RN MD at bedside also providing education.
--- NOTE | 2020-05-04 13:46 | NUR ---
Assessment Regarding social service consult for DC planning. Patient is a 65-year-old male who is unresponsive. Assessment was completed with patient sister Kathleen . Per Kathleen prior to admission patient lived home with her and functioned independently. Prior to admission patient could care for his own ADL's. Per Kathleen, her son Rico came to visit patient stating bedside nurse informed him patient is heading towards his end of life. Advised Kathleen if she has consider hospice. Per Kathleen she was under the impression MD will keep patient until he expires in the hospital but if patient needs to be under hospice she is receptive to it. Informed Kathleen I will contact MD. Informed Kathleen she has the right to participate in all discharge planning. Kathleen verbalized understanding. Placed follow up call to , Dr. Hearn advising her family is receptive to hospice per MD she will keep patient for 3 more days. MD is declining hospice. Addendum: 05/04/20 at 1412 by EDMOND HALL Amended: Links added.
[2020-05-04 21:54] VITALS: BP 125/64
--- NOTE | 2020-05-04 23:15 | NUR ---
SPOKE WITH DAUGHTER TOD REGARDING PATIENT'S CONDITION AND VITALS RIGHT NOW INCLUDING ON WHO HAS THE POA OVER THE PATIENT'S MEDICAL CONDITION. NOTED.
--- NOTE | 2020-05-05 04:39 | NUR ---
PATIENT READ 94.6 AXILLARY, BUT SKIN IS WARM TO TOUCH. APPLIED MORE BLANKETS. WILL CONTINUE TO MONITOR PATIENT.
[2020-05-05 05:28] VITALS: BP 130/72
--- NOTE | 2020-05-05 14:36 | NUR ---
Nutrition Followup Note Wt 85.0 kg Pt was terminally extubated, non responsive, D/C planning upon family decision, comfort measures only are being provided. Est Energy needs: 9341-1467 kcals (17-20 kcal/kgBW) Est Protein needs: 89-98 gms/day (1.0-1.1 gm/kgBW) Will continue to monitor and reassess prn. Labs: GLUC 224 H, ALB 1.9 L BM: Pt with no BM today per RN note Skin: BS 10 high risk, full details in healthcare administrative assistant note PES: 1) Increased nutrient needs r/t pt with no PO intake aeb pt is intubated, NPO 2) Obesity r/t energy intake in excess of energy needs aeb BMI of 30.9 kg/m2 3) Altered nutrition related lab values r/t current/chronic medical condition 3) aeb elev RFTs, elev LFTs, hypocalcemia, hypoalbuminemia Comments Will continue to monitor PO status, skin status, pertinent labs and weight trends. Will f/u in 2-3 days 1) Continue to closely monitor pt NPO status 2) If pt remains NPO for the next 48 hours consider Glucerna 1.2 @ 60 ml/hr goal rate as tolerated if GI is preferred route 3) Gradually advance pt diet to CCHO 60g/Renal Specific 90gProtein, 2gNa,K2,lowphos diet 4) If albumin continues trending down with improved RFTs, consider Prostat 1 pkt BID 5) Continue current plan of care
--- NOTE | 2020-05-05 19:45 | NUR ---
Opening Shift Note Assumed care of patient. Patient unresponsive. No S/S of distress/SOB or pain. Safety measures maintained by keeping the bed locked in lowest position, 2 side rails up, personal items and call light within reach. Will continue to monitor for changes Q1hr and PRN.
[2020-05-05 20:00] VITALS: BP 121/74
--- NOTE | 2020-05-05 21:05 | NUR ---
Patient's temperature 93.7F. Patient's skin warm to touch. Patient given more blankets and turned.
[2020-05-06 05:00] VITALS: BP 119/67
--- NOTE | 2020-05-06 08:00 | NUR ---
Assumed care of the patient, patient is non verbally responsive and with absent motor response, on comfort measures only. VS taken and recorded. Safety precaution observed. Will continue to monitor.
[2020-05-06 09:00] VITALS: BP 118/65
[2020-05-06 13:00] VITALS: BP 122/65
[2020-05-06 16:41] VITALS: BP 134/69
--- NOTE | 2020-05-06 19:50 | NUR ---
Opening Shift Note Assumed care of patient. Patient unresponsive. No S/S of distress/SOB or pain. Safety measures maintained by keeping the bed locked in lowest position, 2 side rails up and comfort measures will be performed. Jones catheter and rectal tube in place. Will continue to monitor for changes Q1hr and PRN.
[2020-05-06 21:00] VITALS: BP 120/67
[2020-05-07 05:00] VITALS: BP 112/68
[2020-05-07] MEDS ORDERED: GLYCOPYRROLATE 0.2 MG/ML 1ML VIAL IM ONE (08:30)
[2020-05-07 08:37] VITALS: BP 122/67
--- NOTE | 2020-05-07 09:27 | NUR ---
Vitals stable with exception to low grade fever and cold measures implemented. Suctioned patient and had lots of creamy secretions. Notified Physician and got an order for a one time order of Glycopyrrolate 0.3mg and awaiting medication from approval.
[2020-05-07 12:55] VITALS: BP 125/75
[2020-05-07 16:40] VITALS: BP 119/65
--- NOTE | 2020-05-07 19:30 | NUR ---
Opening Shift Note Assumed care of patient. Patient unresponsive. No S/S of distress/SOB or pain. Safety measures maintained by keeping the bed locked in lowest position and 2 side rails up. Comfort measures will be performed. Instructed on POC and to call for assist PRN, will continue to monitor for changes Q1hr and PRN.
[2020-05-07 21:00] VITALS: BP 127/68
[2020-05-08 04:42] VITALS: BP 122/65
--- NOTE | 2020-05-08 07:30 | NUR ---
Opening Shift Note Assumed care of patient, unresponsive. No S/S of distress or pain, patient is tachypneic, oropharynx suctioning performed with creamy pink tinged secretions. POC comfort measures and will assist PRN, will continue to monitor for changes Q1hr and PRN with frequent turning. Bed in low and locked position, rails up x 2, repositioned to re-distribute weight off bony prominences.
[2020-05-08 09:00] VITALS: BP 127/70
--- NOTE | 2020-05-08 10:19 | NUR ---
Nutrition Followup Note Wt 85.0 kg Pt was terminally extubated, non responsive, D/C planning upon family decision, comfort measures only are being provided. Est Energy needs: 4137-8009 kcals (17-20 kcal/kgBW), Est Protein needs: 89-98 gms/day (1.0-1.1 gm/kgBW). Will continue to monitor and reassess prn. Labs: GLU 224 H BM: Pt with 100 ML BM today per RN note Skin: BS 10 high risk, full details in body care manager note PES: 1) Increased nutrient needs r/t pt with no PO intake aeb pt is intubated, NPO 2) Obesity r/t energy intake in excess of energy needs aeb BMI of 30.9 kg/m2 3) Altered nutrition related lab values r/t current/chronic medical condition 3) aeb elev RFTs, elev LFTs, hypocalcemia, hypoalbuminemia Comments Will continue to monitor NPO status, skin status, pertinent labs and weight trends. Will f/u in 2-3 days 1) If pt remains NPO for the next 48 hours consider Glucerna 1.2 @ 60 ml/hr goal rate as tolerated if GI is preferred route 2) Continue current plan of care
--- NOTE | 2020-05-08 11:50 | NUR ---
DR Juma LOPEZ AT BEDSIDE OK TO PERFORM NASOTRACHEAL SUCTIONING, ORDERS PLACED
[2020-05-08 13:00] VITALS: BP 113/64
--- NOTE | 2020-05-08 14:16 | NUR ---
FAMILY CALL PASSWORD PROVIDED, SPOKE TO MIGUEL-PATIENTS SISTER, UPDATED ON PATIENT STATUS, ALL QUESTIONS ANSWERED.
[2020-05-08 17:00] VITALS: BP 131/74
--- NOTE | 2020-05-08 19:30 | NUR ---
Opening Shift Note Assumed care of patient. Patient is unresponsive. No S/S of distress/SOB or pain. Fall precautions are in place, the bed is locked in lowest position and side rails up x2. Comfort measures ordered. Will continue to monitor for changes Q1hr and PRN.
[2020-05-08 22:00] VITALS: BP 129/71
--- NOTE | 2020-05-09 01:09 | NUR ---
RT at bedside. Suction completed. Thick creamy yellow/red secretions suctioned out. Will continue to monitor.
[2020-05-09 05:00] VITALS: BP 130/77
--- NOTE | 2020-05-09 06:19 | NUR ---
Temperature reassessed, axillary temperature is now 97.3 degrees from 96.8 degrees. Warming measures are in place. Will continue to monitor.
[2020-05-09 08:41] VITALS: BP 140/77
--- NOTE | 2020-05-09 08:41 | NUR ---
DR Juma LOPEZ AT BEDSIDE
--- NOTE | 2020-05-09 09:40 | NUR ---
FAMILY CALL SPOKE TO ANSELMO, PATIENTS SISTER, PASSWORD PROVIDED, UPDATED ON PATIENT STATUS. INQUIRED ABOUT ALTERNATIVE OPTIONS FOR HOSPICE IF AVAILABLE SUCH SNF OR BOARD AND CARE. FAMILY OPEN TO PALLATIVE CARE OPTIONS, BUT UNABLE TO TAKE PATIENT HOME ON HOSPICE DUE TO HAVING ELDERLY MOTHER THAT THEY CARE FOR WITH DEMENTIA.
[2020-05-09 12:11] VITALS: BP 121/70
--- NOTE | 2020-05-09 16:33 | NUR ---
URINE AND SPUTUM SPECIMENS COLLECTED
[2020-05-09 17:21] VITALS: BP 125/76
--- NOTE | 2020-05-09 19:00 | NUR ---
Opening Shift Note Assumed care of patient. Patient having shallow breaths, refusing to be suctioned at this time, tried twice with no access. Patient not alert or oriented. Will continue to monitor for changes Q1hr and PRN. Patient in the lowest possible position with call light within reach.
[2020-05-09 22:00] VITALS: BP 134/76
[2020-05-10 05:00] VITALS: BP 141/74
--- NOTE | 2020-05-10 07:25 | NUR ---
Opening Shift Note Assumed care of patient, unresponsive to verbal stimuli. No S/S of distress/SOB or pain. Instructed on POC and to call for assist PRN, will continue to monitor for changes Q1hr and PRN. Bed in low and locked position, rails up x2, repositioned to re-distribute pressure off bony prominences.
[2020-05-10 08:55] VITALS: BP 125/72
--- NOTE | 2020-05-10 10:00 | NUR ---
DR ESCOBAR AT BEDSIDE NEW ORDERS FOR DISCHARGE ON HOSPICE AT AVAILABLE FACILITY
[2020-05-10 13:00] VITALS: BP 129/70
--- NOTE | 2020-05-10 14:47 | NUR ---
Nutrition Followup Note Wt 85.0 kg Pt was terminally extubated, non responsive, D/C planning upon family decision, comfort measures only are being provided. Est Energy needs: 8557-0640 kcals (17-20 kcal/kgBW), Est Protein needs: 89-98 gms/day (1.0-1.1 gm/kgBW). Will continue to monitor and reassess prn. Labs: POC GLU 224 H BM: Pt with 100 ML BM today per RN note Skin: BS 10 high risk, full details in acute care nurse practitioner note PES: 1) Increased nutrient needs r/t pt with no PO intake aeb pt is intubated, NPO 2) Obesity r/t energy intake in excess of energy needs aeb BMI of 30.9 kg/m2 3) Altered nutrition related lab values r/t current/chronic medical condition 3) aeb elev RFTs, elev LFTs, hypocalcemia, hypoalbuminemia Comments Will continue to monitor NPO status, skin status, pertinent labs and weight trends. Will f/u in 2-3 days 1) If pt remains NPO for the next 48 hours consider Glucerna 1.2 @ 60 ml/hr goal rate as tolerated if GI is preferred route 2) Continue current plan of care
--- NOTE | 2020-05-10 16:16 | NUR ---
SS consult for hospice and placement. Contacted sister, Kathleen, to discuss discharge planning. sister states she cannot take care of patient and wants him to continue to stay here on palliative care. Discussed with sister pt's POC, explained that we do not provide palliative care, and per MD pt's stability for discharge today. Discussed Board and care options and per sister she wants pt to stay in the area. Contacted assisted living, [facility] and [facility]. Pt accepted to [facility] ([id number] [facility] [phone]) under [facility] ([phone]. [facility]
[2020-05-10 17:17] VITALS: BP 114/67
[2020-05-10 17:35] VITALS: BP 114/67
--- NOTE | 2020-05-10 20:00 | NUR ---
Discharge instructions given as ordered. Encourage to follow up with PMD as instructed. All questions and concerns addressed with family. Patient family verbalized understanding. Medication reconciliation form completed and copy given to patient. Needed vaccines refused. IV removed with catheter intact, pressure dressing applied, lebron catheter intact and being discharge with it per RN report. rectal tube taken out with 600 output. Telemetry unit returned to ICU. Patient taken to vehicle via wheelchair with all personal belongings, accompanied by [facility] transport team. No distress noted at time of departure. Addendum: 05/10/20 at 2017 by Alex Landa RN family aware of departure and discharge. Addendum: 05/10/20 at 2018 by Alex Landa RN wound photo was taken by day eyad.
== END 2020-05-10 20:00 | disposition hospice, home (50) | DRG 870 ==
LOC: EDUNIT# 13:48 → EDBD 13:48 → ER 13:48 → TELE 17:01 → ICU WEST 04-20 10:40 → CATH ICU 04-21 16:45 → WEST WING 04-30 11:09 → CENTRAL 05-03 21:37
PROVIDERS: ADMIT Hospitalist; ATTEND Internal Medicine Pulmonary Disease
PROC: 02HV33Z Insertion of Infusion Device into Superior Vena Cava, Percutaneous Approach (ICD-10-PCS; principal; 2020-04-19)
PROC: 30230N1 Transfusion of Nonautologous Red Blood Cells into Peripheral Vein, Open Approach (ICD-10-PCS; 2020-04-19)
PROC: 5A12012 Performance of Cardiac Output, Single, Manual (ICD-10-PCS; 2020-04-19)
PROC: 5A1955Z Respiratory Ventilation, Greater than 96 Consecutive Hours (ICD-10-PCS; 2020-04-19)
PROC: 0BH17EZ Insertion of Endotracheal Airway into Trachea, Via Natural or Artificial Opening (ICD-10-PCS; 2020-04-19)
PROC: 0W9G30Z Drainage of Peritoneal Cavity with Drainage Device, Percutaneous Approach (ICD-10-PCS; 2020-04-20)
DX: A41.81 Sepsis due to Enterococcus (principal); I46.9 Cardiac arrest, cause unspecified; G93.41 Metabolic encephalopathy; J96.01 Acute respiratory failure with hypoxia; J96.02 Acute respiratory failure with hypercapnia; K76.7 Hepatorenal syndrome; N17.0 Acute kidney failure with tubular necrosis; K29.71 Gastritis, unspecified, with bleeding; J18.9 Pneumonia, unspecified organism; N39.0 Urinary tract infection, site not specified; E44.1 Mild protein-calorie malnutrition; D61.818 Other pancytopenia; G93.1 Anoxic brain damage, not elsewhere classified; E87.0 Hyperosmolality and hypernatremia; E87.4 Mixed disorder of acid-base balance; K76.6 Portal hypertension; Z16.21 Resistance to vancomycin; D62 Acute posthemorrhagic anemia; Z51.5 Encounter for palliative care; G89.4 Chronic pain syndrome; D69.59 Other secondary thrombocytopenia; E03.9 Hypothyroidism, unspecified; K21.9 Gastro-esophageal reflux disease without esophagitis; K70.31 Alcoholic cirrhosis of liver with ascites; E88.09 Other disorders of plasma-protein metabolism, not elsewhere classified; K70.40 Alcoholic hepatic failure without coma; I67.2 Cerebral atherosclerosis; M19.90 Unspecified osteoarthritis, unspecified site; Z82.49 Family history of ischemic heart disease and other diseases of the circulatory system; M48.02 Spinal stenosis, cervical region; Z83.3 Family history of diabetes mellitus; F41.9 Anxiety disorder, unspecified; F10.10 Alcohol abuse, uncomplicated; B96.89 Other specified bacterial agents as the cause of diseases classified elsewhere; R16.1 Splenomegaly, not elsewhere classified; I12.9 Hypertensive chronic kidney disease with stage 1 through stage 4 chronic kidney disease, or unspecified chronic kidney disease; N18.9 Chronic kidney disease, unspecified; E11.22 Type 2 diabetes mellitus with diabetic chronic kidney disease; Z20.828 Contact with and (suspected) exposure to other viral communicable diseases
CPT/HCPCS: 10022; 31500; 36415; 36556; 36600; 51702; 70450; 71045; 76700; 76942; 80048; 80053; 80061; 80202; 80307; 81001; 82270; 82306; 82570; 82728; 82805; 82962; 83036; 83605; 83615; 83735; 83880; 83970; 84100; 84156; 84300; 84484; 85007; 85014; 85018; 85025; 85027; 85379; 85610; 86850; 86900; 86901; 86920; 87040; 87070; 87076; 87077; 87081; 87086; 87088; 87186; 87205; 87426; 87493; 89051; 92950; 93005; 93306; 94002; 94003; 99291; C9113; G0378; J1815; J1953; J2250; J2543; J3490; J7060